=== PATIENT | male | born 1965 | race African-American/Black ===

== ENCOUNTER 2018-02-16 16:33 | Inpatient (IN) | payer OTHER ==
[2018-02-16] MEDS ORDERED: FUROSEMIDE 40 MG/4 ML INJECTABLE VIAL IVPUSH ONE (16:53)
[2018-02-16 17:13] LABS: BASO % 1.1 % (0-2.0); EOS % 4.7 % (0-4.5); HEMATOCRIT 29.3 % (35.4-49); HEMOGLOBIN 9.7 GM/dL (11.7-16.9); LYMPH % 13.4 % (8-40); MCH 28.1 pg (25.7-33.7); MEAN CELL VOLUME 84.9 fl (80-96); MEAN PLT VOLUME 8.9 fl (7.5-11.1); MONO % 17.1 % (3.8-10.2); NEUT % 63.7 % (42.8-82.8); PLATELET COUNT 264 K/MM3 (134-434); RBC 3.45 M/mm3 (4.00-5.60); RDW 15.5 % (11.9-15.9); WHITE BLOOD COUNT 6.8 K/mm3 (4.0-10.0)
--- NOTE | 2018-02-16 17:17 | PDOC ---
History of Present Illness - General History Source: Patient Exam Limitations: No Limitations - History of Present Illness Initial Comments: 02/16/18 18:54 The patient is a 53 year old male with history of hypertension, hyperlipidemia, alcohol dependence, sent from [facility] for hypertension. Patient recently completed 1 week alcohol detox. He was noted to have systolic hypertension to 218 today. He was given Clonidine and Hctz prior to ED arrival. On evaluation, the patient denies headache, blurred vision, numbness or tingling. He denies chest pain or shortness of breath. He denies any other physical complaint. <Lizz Simmons - Last Filed: 02/16/18 19:31> <Mariah Ulloa - Last Filed: 02/16/18 22:16> - General Chief Complaint: Blood Pressure Problem Stated Complaint: HIGH BP Time Seen by Provider: 02/16/18 16:46 Past History <Lizz Simmons - Last Filed: 02/16/18 19:31> - Past Medical History COPD: No HTN: Yes Hypercholesterolemia: Yes Liver Disease: Yes Other medical history: cocaine abuse - Suicide/Smoking/Psychosocial Hx Smoking History: Never smoked Have you smoked in the past 12 months: No Information on smoking cessation initiated: No Hx Alcohol Use: No Drug/Substance Use Hx: No Substance Use Type: Alcohol, Cocaine <Mariah Ulloa - Last Filed: 02/16/18 22:16> - Past Medical History Allergies/Adverse Reactions: Allergies Allergy/AdvReac Type Severity Reaction Status Date / Time No Known Allergies Allergy Verified 02/16/18 16:50 Home Medications: Ambulatory Orders Clonidine HCl 0.1 mg PO TID 02/16/18 Hydrochlorothiazide [Hctz -] 25 mg PO DAILY 02/16/18 Hydroxyzine HCl 50 mg PO Q6H 02/16/18 Ibuprofen 600 mg PO Q6H PRN 02/16/18 Ranitidine [Zantac -] 150 mg PO BID 02/16/18 Trazodone HCl 50 mg PO HS 02/16/18 Review of Systems - Review of Systems Able to Perform ROS?: Yes Comments:: 02/16/18 19:05 GENERAL/CONSTITUTIONAL: No fever or chills. No weakness. HEAD, EYES, EARS, NOSE AND THROAT: No change in vision. No ear pain or discharge. No sore throat. CARDIOVASCULAR: No chest pain or shortness of breath. RESPIRATORY: No cough, wheezing, or hemoptysis. GASTROINTESTINAL: No nausea, vomiting, diarrhea or constipation. GENITOURINARY: No dysuria, frequency, or change in urination. MUSCULOSKELETAL: No joint or muscle swelling or pain. No neck or back pain. SKIN: No rash NEUROLOGIC: No headache, vertigo, loss of consciousness, or change in strength/ sensation. ENDOCRINE: No increased thirst. No abnormal weight change. HEMATOLOGIC/LYMPHATIC: No anemia, easy bleeding, or history of blood clots. ALLERGIC/IMMUNOLOGIC: No hives or skin allergy. <Lizz Simmons - Last Filed: 02/16/18 19:31> *Physical Exam - Vital Signs Last Vital Signs Temp Pulse Resp BP Pulse Ox 97.8 F 88 20 188/109 100 02/16/18 16:33 02/16/18 17:10 02/16/18 17:10 02/16/18 17:10 02/16/18 17:10 - Physical Exam Comments: 02/16/18 19:08 GENERAL: Awake, alert, and fully oriented, in no acute distress. Obese. HEAD: No signs of trauma EYES: PERRLA, EOMI, sclera anicteric, conjunctiva clear ENT: Auricles normal inspection, nares patent. Moist mucosa NECK: Normal ROM, supple, no JVD, or masses LUNGS: Breath sounds equal, clear to auscultation bilaterally. No wheezes, and no crackles HEART: Regular rate and rhythm, normal S1 and S2, no murmurs, rubs or gallops ABDOMEN: Soft, nontender, normoactive bowel sounds. No guarding, no rebound. No masses EXTREMITIES: +3 bilateral lower extremity pitting edema. Normal range of motion. No clubbing or cyanosis. No cords, erythema, or tenderness NEUROLOGICAL: Alert and oriented x 3. Moves all extremities. Face is symmetric. SKIN: Warm, Dry, normal turgor, no rashes or lesions noted. <Lizz Simmons - Last Filed: 02/16/18 19:31> - Vital Signs Last Vital Signs Temp Pulse Resp BP Pulse Ox 97.8 F 96 H 16 199/130 100 02/16/18 16:33 02/16/18 16:33 02/16/18 16:33 02/16/18 16:33 02/16/18 16:33 <Mariah Ulloa - Last Filed: 02/16/18 22:16> Heart Score/ECG Review #1 02/16/18 19:32 EKG obtained 16:51. Normal sinus rhythm at 96 bpm. Possible left atrial enlargement. Left ventricular hypertrophy with repolarization abnormality. Prolonged QT. Abnormal EKG. <Lizz Simmons - Last Filed: 02/16/18 19:31> - History History: Slightly suspicious - Electrocardiogram EKG: Non specific repolarization disturbance - Age Age: 45-65 - Risk Factors Risk Factors Heart Score: Yes Hx Hypercholesterolemia, Yes Hx Hypertension, Yes Hx Obesity Based on the list above the patient has:: >/=3 risk factors or Hx atherosclerotic disease - Troponin Troponin: 1-3x normal limit - Score Heart Score - Total: 5 - ECG Intrepretation Rhythm: Regular Rhythm - P and VA Delta Wave(s) Present: No WPW: No - ST and T Non Specific ST-T Wave changes: Yes Prolonged Q-T Interval: Yes - ECG Impressions Torsades jigar Pointes: No WPW: No <Mariah Ulloa - Last Filed: 02/16/18 22:16> ED Treatment Course - LABORATORY CBC & Chemistry Diagram: 02/16/18 17:00 02/16/18 17:00 - ADDITIONAL ORDERS Additional order review: Laboratory Results 02/16/18 02/16/18 17:00 17:00 PT with INR 11.50 INR 1.02 Sodium 145 Potassium 3.9 Chloride 114 H Carbon Dioxide 24 Anion Gap 7 L BUN 85 H Creatinine 6.7 H Creat Clearance w eGFR 8.67 Random Glucose 86 Calcium 8.0 L Magnesium 2.2 Total Bilirubin < 0.1 L AST 13 L ALT 15 Alkaline Phosphatase 82 Creatine Kinase 118 Troponin I 0.33 H B-Natriuretic Peptide 3731.97 H Total Protein 6.3 L Albumin 3.2 L Triglycerides 33 L Cholesterol 162 Total LDL Cholesterol 106 H HDL Cholesterol 53 02/16/18 17:00 RBC 3.45 L MCV 84.9 MCHC 33.0 RDW 15.5 MPV 8.9 Neutrophils % 63.7 Lymphocytes % 13.4 Monocytes % 17.1 H Eosinophils % 4.7 H Basophils % 1.1 - Medications Given in the ED: ED Medications Discontinued Medications Generic Name Dose Route Start Last Admin Trade Name Geronimo PRN Reason Stop Dose Admin Furosemide 40 mg 02/16/18 16:53 02/16/18 17:15 Lasix Injection - IVPUSH 02/16/18 16:54 40 mg ONCE ONE Administration <Lizz Simmons - Last Filed: 02/16/18 19:31> - LABORATORY CBC & Chemistry Diagram: 02/16/18 17:00 02/16/18 17:00 <Mariah Ulloa - Last Filed: 02/16/18 22:16> Medical Decision Making - Medical Decision Making 02/16/18 19:46 53-year-old male brought in by ambulance from alcohol detox facility in the [place]. The patient was hypertensive at the facility and given clonidine. Paramedics report a systolic blood pressure of 218 prior to his medication. -Patient is not short of breath and he does not have chest pain. Past medical history significant for chronic kidney disease, no dialysis, poorly controlled high blood pressure and lower extremity edema. This is his first visit to [facility] prior to this he went to [facility] Exam shows an obese 53-year-old male in no acute distress with 3+ lower extremity pitting edema, clear lungs, CVS, regular rate and rhythm. EKG is normal sinus rhythm at 96 bpm, LVH with repol abnormality and a prolonged QT. There are no prior EKGs for comparison. Social history patient has a long-standing history of alcohol abuse and just completed 1 week of alcohol detox. Labs reviewed, and a creatinine is above 8, his electrolytes are unremarkable, troponin is 0.33 and will be trended I SPOKE w Dr Vides and the patient will be admitted to telemetry and his troponin will be trended ,elevated BP will be treated and diuretics given for LE edema 02/16/18 22:14 <Mariah Ulloa - Last Filed: 02/16/18 22:16> *DC/Admit/Observation/Transfer - Attestations Scribe Attestion: 02/16/18 19:08 Documentation prepared by Lizz Simmons, acting as electromedical equipment technician for Mariah Ulloa MD. <Lizz Simmons - Last Filed: 02/16/18 19:31> - Discharge Dispostion Admit: Yes <Mariah Ulloa - Last Filed: 02/16/18 22:16> Diagnosis at time of Disposition: Edema extremities, Elevated troponin I measurement, Poorly controlled blood pressure Hypertensive CKD (chronic kidney disease) Qualifiers: Chronic kidney disease stage: unspecified stage Qualified Code(s): I12.9 - Hypertensive chronic kidney disease with stage 1 through stage 4 chronic kidney disease, or unspecified chronic kidney disease
[2018-02-16 17:27] LABS: INR 1.02 (0.82-1.09); PROTHROMBIN TIME (PATIENT) 11.5 SEC (9.98-11.88)
[2018-02-16 17:43] LABS: ALBUMIN 3.2 g/dl (3.4-5.0); ANION GAP 7 (8-16); BLOOD UREA NITROGEN 85 mg/dL (7-18); CHLORIDE 114 mmol/L (98-107); CHOLESTEROL 162 mg/dL (50-200); CO2 24 mmol/L (21-32); CREATININE 6.7 mg/dL (0.7-1.3); GLUCOSE,RANDOM 86 mg/dL (74-106); LDL CHOLESTEROL (ONLY SJRH) 106 mg/dL (5-100); MAGNESIUM 2.2 mg/dL (1.8-2.4); POTASSIUM 3.9 mmol/L (3.5-5.1); SGOT/AST 13 U/L (15-37); SGPT/ALT 15 U/L (12-78); SODIUM 145 mmol/L (136-145); TRIGLYCERIDES 33 mg/dL (35-160)
[2018-02-16 17:44] LABS: ALK PHOS 82 U/L (45-117); HDL CHOLESTEROL 53 mg/dL (40-60); N-TERMINAL BNP 3731.97 pg/ml (5-125); TOT PROT 6.3 g/dl (6.4-8.2)
[2018-02-16 17:59] LABS: BILIRUBIN,TOTAL < 0.1 mg/dL (0.2-1.0)
[2018-02-16] MEDS ORDERED: cloNIDine HCL 0.1 MG TABLET PO ONE (19:30)
[2018-02-16] MEDS ORDERED: HYDROCHLOROTHIAZIDE 25 MG TABLET (FP) PO ONE (19:31)
[2018-02-16] MEDS ORDERED: HYDROCHLOROTHIAZIDE 25 MG TABLET (FP) ONE (19:38)
[2018-02-16] MEDS ORDERED: cloNIDine HCL 0.1 MG TABLET ONE ×2 (19:38→22:53)
[2018-02-16] MEDS ORDERED: ASPIRIN 81 MG CHEWABLE TABLETS PO ONE (19:44)
[2018-02-16] MEDS ORDERED: ASPIRIN 325 MG TABLET ONE (19:49)
[2018-02-16] MEDS ORDERED: LABETALOL HCL 200 MG TABLET (FP) PO ONE (20:46)
[2018-02-16] MEDS ORDERED: LABETALOL HCL 100 MG TABLET (FP) ONE (20:54)
[2018-02-16] MEDS ORDERED: ACETAMINOPHEN 325 MG TABLET (FP) PO PRN (21:52)
--- NOTE | 2018-02-16 22:08 | HP ---
Admitting History and Physical - Primary Care Physician PCP: Natalya Stewart - Admission History of Present Illness: -53 year old male with history of hypertension, hyperlipidemia, alcohol dependence, sent from [facility]. Patient recently completed 1 week alcohol detox. He was noted to have systolic hypertension to 218 today. He was given Clonidine and Hctz prior to ED arrival. On evaluation, the patient denies headache, blurred vision, numbness or tingling. He denies chest pain or shortness of breath. - - Past Medical History Cardiovascular: Yes: HTN, Hyperlipdemia Renal/: Yes: Other (ckd) - Smoking History Smoking history: Never smoked Have you smoked in the past 12 months: No - Alcohol/Substance Use Hx Alcohol Use: No Home Medications - Allergies Allergies/Adverse Reactions: Allergies Allergy/AdvReac Type Severity Reaction Status Date / Time No Known Allergies Allergy Verified 02/16/18 16:50 - Home Medications Home Medications: Ambulatory Orders Clonidine HCl 0.1 mg PO TID 02/16/18 Hydrochlorothiazide [Hctz -] 25 mg PO DAILY 02/16/18 Hydroxyzine HCl 50 mg PO Q6H 02/16/18 Ibuprofen 600 mg PO Q6H PRN 02/16/18 Ranitidine [Zantac -] 150 mg PO BID 02/16/18 Trazodone HCl 50 mg PO HS 02/16/18 Physical Examination Vital Signs: Vital Signs Temperature 97.8 F 02/16/18 16:33 Pulse Rate 93 H 02/16/18 20:27 Respiratory Rate 19 02/16/18 20:27 Blood Pressure 188/113 02/16/18 20:27 O2 Sat by Pulse Oximetry (%) 100 02/16/18 19:07 Constitutional: Yes: No Distress HENT: Yes: Atraumatic Neck: Yes: Supple Cardiovascular: Yes: Regular Rate and Rhythm Respiratory: Yes: CTA Bilaterally, Rales, Rhonchi Gastrointestinal: Yes: Normal Bowel Sounds Extremities: Yes: WNL Edema: Yes Edema: LLE: 2+, RLE: 2+ Labs: CBC, BMP 02/16/18 17:00 02/16/18 17:00 Problem List - Problems (1) Edema extremities Assessment/Plan: on lasix and hctz improving Code(s): R60.0 - LOCALIZED EDEMA (2) Elevated troponin I measurement Assessment/Plan: trending down Code(s): R74.8 - ABNORMAL LEVELS OF OTHER SERUM ENZYMES (3) Hypertensive CKD (chronic kidney disease) Assessment/Plan: probably due to uncontrolled htn cr improving Code(s): I12.9 - HYPERTENSIVE CHRONIC KIDNEY DISEASE W STG 1-4/UNSP CHR KDNY Qualifiers: Chronic kidney disease stage: unspecified stage Qualified Code(s): I12.9 - Hypertensive chronic kidney disease with stage 1 through stage 4 chronic kidney disease, or unspecified chronic kidney disease (4) Poorly controlled blood pressure Assessment/Plan: on meds improving Code(s): I99.8 - OTHER DISORDER OF CIRCULATORY SYSTEM Assessment/Plan Laboratory Tests 02/16/18 02/16/18 02/16/18 17:00 17:00 17:00 WBC 6.8 RBC 3.45 L Hgb 9.7 L Hct 29.3 L MCV 84.9 MCH 28.1 MCHC 33.0 RDW 15.5 Plt Count 264 MPV 8.9 Neutrophils % 63.7 Lymphocytes % 13.4 Monocytes % 17.1 H Eosinophils % 4.7 H Basophils % 1.1 PT with INR 11.50 INR 1.02 Sodium 145 Potassium 3.9 Chloride 114 H Carbon Dioxide 24 Anion Gap 7 L BUN 85 H Creatinine 6.7 H Creat Clearance w eGFR 8.67 Random Glucose 86 Calcium 8.0 L Magnesium 2.2 Total Bilirubin < 0.1 L AST 13 L ALT 15 Alkaline Phosphatase 82 Creatine Kinase 118 Troponin I 0.33 H B-Natriuretic Peptide 3731.97 H Total Protein 6.3 L Albumin 3.2 L Triglycerides 33 L Cholesterol 162 Total LDL Cholesterol 106 H HDL Cholesterol 53 Active Medications Generic Name Dose Route Start Last Admin Trade Name Freq PRN Reason Stop Dose Admin Acetaminophen 650 mg 02/16/18 21:52 Tylenol - PO Q6H PRN FEVER Clonidine 0.1 mg 02/16/18 22:00 Catapres - PO TID ANISH Heparin Sodium (Porcine) 5,000 unit 02/16/18 22:00 Heparin - SQ BID ANISH Hydrochlorothiazide 25 mg 02/17/18 10:00 Hctz - PO DAILY ANISH Ranitidine HCl 150 mg 02/16/18 22:00 Zantac - PO BID ANISH Trazodone HCl 50 mg 02/16/18 22:00 Desyrel - PO HS ANISH
[2018-02-16] MEDS ORDERED: amLODIPine BESYLATE 10 MG TABLET (FP) PO ONE (22:09)
[2018-02-16] MEDS ORDERED: traMADol HCL 50 MG TABLET ONE (22:52)
[2018-02-16] MEDS ORDERED: amLODIPine BESYLATE 5 MG TABLET (FP) ONE (22:53)
[2018-02-16] MEDS ORDERED: RANITIDINE HCL 150 MG TABLET (FP) ONE (22:53)
[2018-02-16] MEDS ORDERED: HEPARIN NA (PORCINE) 5,000 UNITS/ML 1ML VIAL ONE (22:53)
[2018-02-16] MEDS: cloNIDine HCL 0.1 MG TABLET PO SCH (23:05)
[2018-02-16] MEDS: RANITIDINE HCL 150 MG TABLET (FP) PO SCH (23:06)
[2018-02-16] MEDS: traZODone HCL 50 MG TABLET (FP) PO SCH (23:06)
[2018-02-16] MEDS: HEPARIN NA (PORCINE) 5,000 UNITS/ML 1ML VIAL SQ SCH (23:06)
[2018-02-17 03:12] VITALS: BMI 39.7
[2018-02-17] MEDS: cloNIDine HCL 0.1 MG TABLET PO SCH ×3 (06:09→21:25)
[2018-02-17 06:45] LABS: BASO % 0.7 % (0-2.0); EOS % 4.7 % (0-4.5); HEMATOCRIT 28.2 % (35.4-49); HEMOGLOBIN 9.4 GM/dL (11.7-16.9); LYMPH % 14.9 % (8-40); MCH 28.6 pg (25.7-33.7); MCHC 33.5 g/dl (32.0-35.9); MEAN CELL VOLUME 85.4 fl (80-96); MEAN PLT VOLUME 9.5 fl (7.5-11.1); MONO % 19.2 % (3.8-10.2); NEUT % 60.5 % (42.8-82.8); PLATELET COUNT 257 K/MM3 (134-434); RDW 15.1 % (11.9-15.9); WHITE BLOOD COUNT 6.7 K/mm3 (4.0-10.0)
[2018-02-17 07:28] LABS: ALBUMIN 3.2 g/dl (3.4-5.0); ANION GAP 10 (8-16); BLOOD UREA NITROGEN 85 mg/dL (7-18); CALCIUM 7.9 mg/dL (8.5-10.1); CHLORIDE 110 mmol/L (98-107); CO2 25 mmol/L (21-32); GLUCOSE,RANDOM 87 mg/dL (74-106); POTASSIUM 3.8 mmol/L (3.5-5.1); SGOT/AST 13 U/L (15-37); SGPT/ALT 15 U/L (12-78); SODIUM 145 mmol/L (136-145)
[2018-02-17 07:30] LABS: ALK PHOS 77 U/L (45-117); BILIRUBIN,TOTAL 0.2 mg/dL (0.2-1.0); CREATININE 6.6 mg/dL (0.7-1.3); TOT PROT 5.9 g/dl (6.4-8.2)
--- NOTE | 2018-02-17 10:10 | EKG ---
Test Reason : Blood Pressure : / mmHG Vent. Rate : 096 BPM Atrial Rate : 096 BPM P-R Int : 120 ms QRS Dur : 106 ms QT Int : 392 ms P-R-T Axes : 044 005 175 degrees QTc Int : 495 ms NORMAL SINUS RHYTHM POSSIBLE LEFT ATRIAL ENLARGEMENT LEFT VENTRICULAR HYPERTROPHY WITH REPOLARIZATION ABNORMALITY PROLONGED QT ABNORMAL ECG NO PREVIOUS ECGS AVAILABLE Confirmed by Malik Higigns MD ([id number]) on 02/17/2018 10:10:21 AM Referred By: Confirmed By:Malik Higgins MD
[2018-02-17] MEDS: FUROSEMIDE 40 MG/4 ML INJECTABLE VIAL IVPUSH SCH (10:42)
[2018-02-17] MEDS: HYDROCHLOROTHIAZIDE 25 MG TABLET (FP) PO SCH (10:42)
[2018-02-17] MEDS: RANITIDINE HCL 150 MG TABLET (FP) PO SCH ×2 (10:42→21:25)
[2018-02-17] MEDS: amLODIPine BESYLATE 10 MG TABLET (FP) PO SCH (10:42)
[2018-02-17] MEDS: HEPARIN NA (PORCINE) 5,000 UNITS/ML 1ML VIAL SQ SCH ×2 (10:42→21:25)
--- NOTE | 2018-02-17 15:36 | CONSULT ---
Consult Consult Specialty:: Nephrology Reason for Consultation:: SHAR - History of Present Illness Chief Complaint: sent in for elevated blood pressure History of Present Illness: Pt is a 53 year old make with pmhx of etoh abuse, cocaine use, CKD, HLD and HTN who was sent in from rehab for elevated blood pressure. He is awake and alert. He denies shortness of breath or chest pain. He was found to have elevated creatinine and i was called to see him. I did see him in the past in an outise facility however he did not follow up. Pt is awake that he has history of CKD. [place]. He has not done cocaine in about 11 days. He has however been taking daily nsaids for the last week. He does complains of lower ext edema. - History Source History Provided By: Patient - Past Medical History Cardio/Vascular: Yes: HTN, Hyperlipdemia Gastrointestinal: Yes: GERD Renal/: Yes: Renal Inusuff, Other (ckd) - Alcohol/Substance Use Hx Alcohol Use: Yes - Smoking History Smoking history: Never smoked Have you smoked in the past 12 months: No Home Medications - Allergies Allergies/Adverse Reactions: Allergies Allergy/AdvReac Type Severity Reaction Status Date / Time No Known Allergies Allergy Verified 02/16/18 16:50 - Home Medications Home Medications: Ambulatory Orders Clonidine HCl 0.1 mg PO TID 02/16/18 Hydrochlorothiazide [Hctz -] 25 mg PO DAILY 02/16/18 Hydroxyzine HCl 50 mg PO Q6H 02/16/18 Ibuprofen 600 mg PO Q6H PRN 02/16/18 Ranitidine [Zantac -] 150 mg PO BID 02/16/18 Trazodone HCl 50 mg PO HS 02/16/18 Family Disease History - Family Disease History Family History: Denies Review of Systems - Review of Systems Constitutional: reports: No Symptoms Eyes: reports: No Symptoms HENT: reports: No Symptoms Neck: reports: No Symptoms Cardiovascular: reports: No Symptoms Respiratory: reports: No Symptoms Gastrointestinal: reports: No Symptoms Genitourinary: reports: No Symptoms Musculoskeletal: reports: No Symptoms Integumentary: reports: No Symptoms Neurological: reports: No Symptoms Endocrine: reports: No Symptoms Hematology/Lymphatic: reports: No Symptoms Psychiatric: reports: No Symptoms Physical Exam Vital Signs: Vital Signs Temperature 98 F 02/17/18 05:38 Pulse Rate 86 02/17/18 05:38 Respiratory Rate 20 02/17/18 05:38 Blood Pressure 162/93 02/17/18 05:38 O2 Sat by Pulse Oximetry (%) 95 02/17/18 02:56 Constitutional: Yes: Calm Eyes: Yes: Conjunctiva Clear HENT: Yes: Atraumatic Neck: Yes: Supple Cardiovascular: Yes: S1, S2 Respiratory: Yes: CTA Bilaterally Gastrointestinal: Yes: Soft, Abdomen, Obese Renal/: Yes: WNL Musculoskeletal: Yes: WNL Edema: Yes Edema: LLE: 2+, RLE: 2+ Neurological: Yes: Oriented Psychiatric: Yes: Oriented Labs: CBC, BMP 02/17/18 06:25 02/17/18 06:25 Laboratory Tests 02/16/18 02/16/18 02/16/18 17:00 17:00 17:00 WBC 6.8 Hgb 9.7 L Plt Count 264 INR 1.02 Sodium 145 Potassium 3.9 Chloride 114 H Carbon Dioxide 24 Anion Gap 7 L BUN 85 H Creatinine 6.7 H 02/17/18 02/17/18 06:25 06:25 WBC 6.7 Hgb 9.4 L Plt Count 257 INR Sodium 145 Potassium 3.8 Chloride 110 H Carbon Dioxide 25 Anion Gap 10 BUN 85 H Creatinine 6.6 H Imaging - Results Chest X-ray: Report Reviewed Problem List - Problems (1) HTN (hypertension) Code(s): I10 - ESSENTIAL (PRIMARY) HYPERTENSION (2) CKD (chronic kidney disease) Code(s): N18.9 - CHRONIC KIDNEY DISEASE, UNSPECIFIED (3) Edema extremities Code(s): R60.0 - LOCALIZED EDEMA (4) Elevated troponin I measurement Code(s): R74.8 - ABNORMAL LEVELS OF OTHER SERUM ENZYMES (5) Poorly controlled blood pressure Code(s): I99.8 - OTHER DISORDER OF CIRCULATORY SYSTEM Assessment/Plan Current Medications Generic Name Dose Route Start Last Admin Trade Name Freq PRN Reason Stop Dose Admin Acetaminophen 650 mg 02/16/18 21:52 Tylenol - PO Q6H PRN FEVER Amlodipine Besylate 10 mg 02/17/18 10:00 02/17/18 10:42 Norvasc - PO 10 mg DAILY ANISH Administration Clonidine 0.1 mg 02/16/18 22:00 02/17/18 06:09 Catapres - PO 0.1 mg TID ANISH Administration Furosemide 40 mg 02/17/18 10:00 02/17/18 10:42 Lasix Injection - IVPUSH 40 mg DAILY ANISH Administration Heparin Sodium (Porcine) 5,000 unit 02/16/18 22:00 02/17/18 10:42 Heparin - SQ 5,000 unit BID ANISH Administration Hydrochlorothiazide 25 mg 02/17/18 10:00 02/17/18 10:42 Hctz - PO 25 mg DAILY ANISH Administration Ranitidine HCl 150 mg 02/16/18 22:00 02/17/18 10:42 Zantac - PO 150 mg BID ANISH Administration Trazodone HCl 50 mg 02/16/18 22:00 02/16/18 23:06 Desyrel - PO 50 mg HS ANISH Administration Impression 1. HTN poorly controlled 2. CKD 3. SHAR 4. cocain use 5. etoh abuse 6. HLD 7. GERD 8. nsaid use Plan - check renal ultrasound - check ua, electrolytes and supervisor maintenance - will send renal workup - bp is improving, will decrease it gradually - cont detox - SHAR on CKD likely multifactorial in a pt with hx ckd, uncontrolled htn, nsaid use and cocaine use - will follow Dr Champagne
--- NOTE | 2018-02-17 16:44 | CON.CARD ---
Consult Consult Specialty:: cardiology Reason for Consultation:: uncontrolled HTN - History of Present Illness Chief Complaint: Pt A&Ox3; no chest pain or dyspnea presently. History of Present Illness: The patient is a 53 year old black male with history of hypertension, hyperlipidemia, alcohol dependence, sent from [facility] for hypertension. Patient recently completed 1 week alcohol detox. He was noted to have systolic hypertension to 218 today. He was given Clonidine and Hctz prior to ED arrival. On evaluation, the patient denies headache, blurred vision, numbness or tingling. He denies chest pain or shortness of breath. He denies any other physical complaint. <Lizz Simmons - Last Filed: 02/16/18 19:31> - History Source History Provided By: Patient, Medical Record Limitations to Obtaining History: No Limitations - Past Medical History Cardio/Vascular: Yes: HTN, Hyperlipdemia Gastrointestinal: Yes: GERD Renal/: Yes: Renal Inusuff, Other (ckd) Heme/Onc: Yes: Anemia Psych: Yes: Other (alcoholism) - Alcohol/Substance Use Hx Alcohol Use: Yes - Smoking History Smoking history: Never smoked Have you smoked in the past 12 months: No - Social History Usual Living Arrangement: Alone Home Medications - Allergies Allergies/Adverse Reactions: Allergies Allergy/AdvReac Type Severity Reaction Status Date / Time No Known Allergies Allergy Verified 02/16/18 16:50 - Home Medications Home Medications: Ambulatory Orders Clonidine HCl 0.1 mg PO TID 02/16/18 Hydrochlorothiazide [Hctz -] 25 mg PO DAILY 02/16/18 Hydroxyzine HCl 50 mg PO Q6H 02/16/18 Ibuprofen 600 mg PO Q6H PRN 02/16/18 Ranitidine [Zantac -] 150 mg PO BID 02/16/18 Trazodone HCl 50 mg PO HS 02/16/18 Vital Signs: Vital Signs Temperature 98.2 F 02/17/18 15:00 Pulse Rate 82 02/17/18 15:00 Respiratory Rate 20 02/17/18 15:00 Blood Pressure 159/96 02/17/18 15:00 O2 Sat by Pulse Oximetry (%) 95 02/17/18 02:56 - Other Data Labs, Other Data: CBC, BMP 02/17/18 06:25 02/17/18 06:25 INR, PTT INR 1.02 (0.82-1.09) 02/16/18 17:00 Troponin, BNP 02/16/18 02/16/18 02/17/18 17:00 22:59 06:25 Troponin I 0.33 H 0.34 H 0.29 H B-Natriuretic Peptide 3731.97 H 02/17/18 06:25 Troponin I Cancelled B-Natriuretic Peptide Troponin, BNP 02/16/18 02/16/18 02/17/18 17:00 22:59 06:25 Troponin I 0.33 H 0.34 H 0.29 H B-Natriuretic Peptide 3731.97 H 02/17/18 06:25 Troponin I Cancelled B-Natriuretic Peptide Problem List - Problems (1) Renal dysfunction Code(s): N28.9 - DISORDER OF KIDNEY AND URETER, UNSPECIFIED (2) Edema extremities Code(s): R60.0 - LOCALIZED EDEMA (3) Elevated troponin I measurement Assessment/Plan: likiely 2ndary to renal failure, uncontrolled HTN, CHF. Multiple CAD risks; sedentary. Will require coronary artery evaluation (followed by Dr. Coley at [facility] ; this may be done as outatient. Code(s): R74.8 - ABNORMAL LEVELS OF OTHER SERUM ENZYMES (4) Poorly controlled blood pressure Assessment/Plan: Continue present medications (per air motor repairer)). Recent abuse of cocaine will be a factor in choosing medications. Code(s): I99.8 - OTHER DISORDER OF CIRCULATORY SYSTEM (5) Hypertensive CKD (chronic kidney disease) Code(s): I12.9 - HYPERTENSIVE CHRONIC KIDNEY DISEASE W STG 1-4/UNSP CHR KDNY Qualifiers: Chronic kidney disease stage: unspecified stage Qualified Code(s): I12.9 - Hypertensive chronic kidney disease with stage 1 through stage 4 chronic kidney disease, or unspecified chronic kidney disease (6) [place] cardiac risk >20% in next 10 years Code(s): Z91.89 - OTH PERSONAL RISK FACTORS, NOT ELSEWHERE CLASSIFIED (7) Has smoked cigarettes within prior year Assessment/Plan: "stopped" 3 weeks ago. Code(s): Z87.891 - PERSONAL HISTORY OF NICOTINE DEPENDENCE (8) Cocaine abuse Assessment/Plan: last abused about 3 weeks ago. Code(s): F14.10 - COCAINE ABUSE, UNCOMPLICATED (9) Sleep apnea Assessment/Plan: noncompliant to CPAP mask. Code(s): G47.30 - SLEEP APNEA, UNSPECIFIED (10) Obesity Code(s): E66.9 - OBESITY, UNSPECIFIED
--- NOTE | 2018-02-17 17:13 | PN ---
Progress Note, Physician History of Present Illness: doing well - Current Medication List Current Medications: Active Medications Acetaminophen (Tylenol -) 650 mg PO Q6H PRN PRN Reason: FEVER Amlodipine Besylate (Norvasc -) 10 mg PO DAILY [facility] Last Admin: 02/17/18 10:42 Dose: 10 mg Clonidine (Catapres -) 0.1 mg PO TID [facility] Last Admin: 02/17/18 06:09 Dose: 0.1 mg Furosemide (Lasix Injection -) 40 mg IVPUSH DAILY [facility] Last Admin: 02/17/18 10:42 Dose: 40 mg Heparin Sodium (Porcine) (Heparin -) 5,000 unit SQ BID [facility] Last Admin: 02/17/18 10:42 Dose: 5,000 unit Hydrochlorothiazide (Hctz -) 25 mg PO DAILY [facility] Last Admin: 02/17/18 10:42 Dose: 25 mg Ranitidine HCl (Zantac -) 150 mg PO BID [facility] Last Admin: 02/17/18 10:42 Dose: 150 mg Trazodone HCl (Desyrel -) 50 mg PO HS [facility] Last Admin: 02/16/18 23:06 Dose: 50 mg - Objective Vital Signs: Vital Signs Temperature 98.2 F 02/17/18 15:00 Pulse Rate 82 02/17/18 15:00 Respiratory Rate 20 02/17/18 15:00 Blood Pressure 159/96 02/17/18 15:00 O2 Sat by Pulse Oximetry (%) 95 02/17/18 02:56 Constitutional: Yes: No Distress HENT: Yes: Atraumatic Neck: Yes: Supple Cardiovascular: Yes: Regular Rate and Rhythm Respiratory: Yes: CTA Bilaterally Gastrointestinal: Yes: Normal Bowel Sounds Extremities: Yes: WNL Edema: LLE: 1+, RLE: 1+ Neurological: Yes: Alert, Oriented Labs: CBC, BMP 02/17/18 06:25 02/17/18 06:25 INR, PTT INR 1.02 (0.82-1.09) 02/16/18 17:00 Problem List - Problems (1) Edema extremities Assessment/Plan: on lasix and hctz improving Code(s): R60.0 - LOCALIZED EDEMA (2) Elevated troponin I measurement Assessment/Plan: trending down Code(s): R74.8 - ABNORMAL LEVELS OF OTHER SERUM ENZYMES (3) Hypertensive CKD (chronic kidney disease) Assessment/Plan: probably due to uncontrolled htn Code(s): I12.9 - HYPERTENSIVE CHRONIC KIDNEY DISEASE W STG 1-4/UNSP CHR KDNY Qualifiers: Chronic kidney disease stage: unspecified stage Qualified Code(s): I12.9 - Hypertensive chronic kidney disease with stage 1 through stage 4 chronic kidney disease, or unspecified chronic kidney disease (4) Poorly controlled blood pressure Assessment/Plan: on meds improving Code(s): I99.8 - OTHER DISORDER OF CIRCULATORY SYSTEM
[2018-02-17] MEDS: traZODone HCL 50 MG TABLET (FP) PO SCH (21:25)
[2018-02-17] MEDS: ATORVASTATIN CA 10 MG TABLET (FP) PO SCH (21:25)
[2018-02-17 22:56] LABS: URINE APPEARANCE CLEAR; URINE BILIRUBIN NEGATIVE (<2.0 mg/dL); URINE BLOOD 1+ (NEGATIVE); URINE COLOR COLORLESS; URINE GLUCOSE (UA) 1+ (NEGATIVE); URINE KETONE NEGATIVE (NEGATIVE); URINE LEUK ESTERASE NEGATIVE (NEGATIVE); URINE NITRITE NEGATIVE (NEGATIVE); URINE PROTEIN NEGATIVE (NEGATIVE); URINE UROBILINOGEN NEGATIVE mg/dL (0.2-1.0)
[2018-02-18 00:01] LABS: URINE CREATININE 41.4 mg/dL (20-370)
[2018-02-18 00:34] LABS: EPI CELLS RARE /HPF (FEW); URINE BACTERIA FEW /hpf (NONE SEEN)
[2018-02-18] MEDS: cloNIDine HCL 0.1 MG TABLET PO SCH ×3 (05:51→21:42)
[2018-02-18 07:55] LABS: CHLORIDE 107 mmol/L (98-107); POTASSIUM 3.4 mmol/L (3.5-5.1); SODIUM 145 mmol/L (136-145)
[2018-02-18 08:03] LABS: ALBUMIN 3.3 g/dl (3.4-5.0); ALK PHOS 85 U/L (45-117); ANION GAP 12 (8-16); BILIRUBIN,TOTAL 0.3 mg/dL (0.2-1.0); BLOOD UREA NITROGEN 80 mg/dL (7-18); CO2 26 mmol/L (21-32); CREATININE 6.2 mg/dL (0.7-1.3); GLUCOSE,RANDOM 93 mg/dL (74-106); SGOT/AST 13 U/L (15-37); SGPT/ALT 16 U/L (12-78); TOT PROT 6.3 g/dl (6.4-8.2)
[2018-02-18] MEDS ORDERED: PT OWN MED DRAWER 7, Y5N ONE (08:30)
[2018-02-18] MEDS: amLODIPine BESYLATE 10 MG TABLET (FP) PO SCH (10:35)
[2018-02-18] MEDS: HEPARIN NA (PORCINE) 5,000 UNITS/ML 1ML VIAL SQ SCH ×2 (10:35→21:42)
[2018-02-18] MEDS: FUROSEMIDE 40 MG/4 ML INJECTABLE VIAL IVPUSH SCH (10:35)
[2018-02-18] MEDS: HYDROCHLOROTHIAZIDE 25 MG TABLET (FP) PO SCH (10:35)
[2018-02-18] MEDS: RANITIDINE HCL 150 MG TABLET (FP) PO SCH ×2 (10:35→21:42)
--- NOTE | 2018-02-18 11:27 | PN ---
Progress Note, Physician - Current Medication List Current Medications: Active Medications Acetaminophen (Tylenol -) 650 mg PO Q6H PRN PRN Reason: FEVER Amlodipine Besylate (Norvasc -) 10 mg PO DAILY [facility] Last Admin: 02/18/18 10:35 Dose: 10 mg Atorvastatin Calcium (Lipitor -) 10 mg PO HS [facility] Last Admin: 02/17/18 21:25 Dose: 10 mg Clonidine (Catapres -) 0.1 mg PO TID [facility] Last Admin: 02/18/18 05:51 Dose: 0.1 mg Furosemide (Lasix Injection -) 40 mg IVPUSH DAILY [facility] Last Admin: 02/18/18 10:35 Dose: 40 mg Heparin Sodium (Porcine) (Heparin -) 5,000 unit SQ BID [facility] Last Admin: 02/18/18 10:35 Dose: 5,000 unit Hydrochlorothiazide (Hctz -) 25 mg PO DAILY [facility] Last Admin: 02/18/18 10:35 Dose: 25 mg Ranitidine HCl (Zantac -) 150 mg PO BID [facility] Last Admin: 02/18/18 10:35 Dose: 150 mg Trazodone HCl (Desyrel -) 50 mg PO [facility] Last Admin: 02/17/18 21:25 Dose: 50 mg - Objective Vital Signs: Vital Signs Temperature 99.2 F 02/18/18 05:00 Pulse Rate 78 02/18/18 05:00 Respiratory Rate 17 02/18/18 05:00 Blood Pressure 154/83 02/18/18 05:00 O2 Sat by Pulse Oximetry (%) 97 02/17/18 20:00 Eyes: Yes: WNL, Conjunctiva Clear, EOM Intact HENT: Yes: WNL, Atraumatic, Normocephalic Neck: Yes: WNL, Supple, Trachea Midline Cardiovascular: Yes: WNL, Regular Rate and Rhythm Respiratory: Yes: WNL, Regular, CTA Bilaterally Gastrointestinal: Yes: WNL, Normal Bowel Sounds Genitourinary: Yes: WNL Musculoskeletal: Yes: WNL Extremities: Yes: WNL Edema: No Integumentary: Yes: WNL Neurological: Yes: WNL, Alert, Oriented ...Motor Strength: WNL Psychiatric: Yes: WNL Labs: CBC, BMP 02/17/18 06:25 02/18/18 07:04 INR, PTT INR 1.02 (0.82-1.09) 02/16/18 17:00 Assessment/Plan Problems (1) Renal dysfunction Code(s): N28.9 - DISORDER OF KIDNEY AND URETER, UNSPECIFIED (2) Edema extremities Code(s): R60.0 - LOCALIZED EDEMA (3) Elevated troponin I measurement Assessment/Plan: tank 2ndary to renal failure, uncontrolled HTN, CHF. Multiple CAD risks; sedentary. Will require coronary artery evaluation (followed by Dr. Coley at [facility] ; this may be done as outatient. Code(s): R74.8 - ABNORMAL LEVELS OF OTHER SERUM ENZYMES (4) Poorly controlled blood pressure Assessment/Plan: Continue present medications (per signal apprentice)). Recent abuse of cocaine will be a factor in choosing medications. Code(s): I99.8 - OTHER DISORDER OF CIRCULATORY SYSTEM (5) Hypertensive CKD (chronic kidney disease) Code(s): I12.9 - HYPERTENSIVE CHRONIC KIDNEY DISEASE W STG 1-4/UNSP CHR KDNY Qualifiers: Chronic kidney disease stage: unspecified stage Qualified Code(s): I12.9 - Hypertensive chronic kidney disease with stage 1 through stage 4 chronic kidney disease, or unspecified chronic kidney disease (6) [place] cardiac risk >20% in next 10 years Code(s): Z91.89 - OTH PERSONAL RISK FACTORS, NOT ELSEWHERE CLASSIFIED (7) Has smoked cigarettes within prior year Assessment/Plan: "stopped" 3 weeks ago. Code(s): Z87.891 - PERSONAL HISTORY OF NICOTINE DEPENDENCE (8) Cocaine abuse Assessment/Plan: last abused about 3 weeks ago. Code(s): F14.10 - COCAINE ABUSE, UNCOMPLICATED (9) Sleep apnea Assessment/Plan: noncompliant to CPAP mask. Code(s): G47.30 - SLEEP APNEA, UNSPECIFIED (10) Obesity Code(s): E66.9 - OBESITY, UNSPECIFIED
--- NOTE | 2018-02-18 12:32 | PN ---
Progress Note, Physician History of Present Illness: Pt seen and examined at bedside. He is awake and alert. He denies shortness of breath. He feels that his lower ext edema is starting to improve. He denies chest pain. - Current Medication List Current Medications: Active Medications Acetaminophen (Tylenol -) 650 mg PO Q6H PRN PRN Reason: FEVER Amlodipine Besylate (Norvasc -) 10 mg PO DAILY [facility] Last Admin: 02/18/18 10:35 Dose: 10 mg Atorvastatin Calcium (Lipitor -) 10 mg PO HS [facility] Last Admin: 02/17/18 21:25 Dose: 10 mg Clonidine (Catapres -) 0.1 mg PO TID [facility] Last Admin: 02/18/18 05:51 Dose: 0.1 mg Furosemide (Lasix Injection -) 40 mg IVPUSH DAILY [facility] Last Admin: 02/18/18 10:35 Dose: 40 mg Heparin Sodium (Porcine) (Heparin -) 5,000 unit SQ BID [facility] Last Admin: 02/18/18 10:35 Dose: 5,000 unit Hydrochlorothiazide (Hctz -) 25 mg PO DAILY [facility] Last Admin: 02/18/18 10:35 Dose: 25 mg Ranitidine HCl (Zantac -) 150 mg PO BID [facility] Last Admin: 02/18/18 10:35 Dose: 150 mg Trazodone HCl (Desyrel -) 50 mg PO HS [facility] Last Admin: 02/17/18 21:25 Dose: 50 mg - Objective Vital Signs: Vital Signs Temperature 99.2 F 02/18/18 05:00 Pulse Rate 78 02/18/18 05:00 Respiratory Rate 17 02/18/18 05:00 Blood Pressure 154/83 02/18/18 05:00 O2 Sat by Pulse Oximetry (%) 97 02/17/18 20:00 Constitutional: Yes: Calm Eyes: Yes: Conjunctiva Clear HENT: Yes: Atraumatic Neck: Yes: Supple Cardiovascular: Yes: S1, S2 Respiratory: Yes: CTA Bilaterally Gastrointestinal: Yes: Soft, Abdomen, Obese Genitourinary: Yes: WNL Extremities: Yes: WNL Edema: Yes Edema: LLE: 1+, RLE: 1+ Neurological: Yes: Oriented Psychiatric: Yes: Oriented Labs: CBC, BMP 02/17/18 06:25 02/18/18 07:04 INR, PTT INR 1.02 (0.82-1.09) 02/16/18 17:00 - ....Imaging Ultrasound: Report Reviewed Problem List - Problems (1) HTN (hypertension) Code(s): I10 - ESSENTIAL (PRIMARY) HYPERTENSION (2) CKD (chronic kidney disease) Code(s): N18.9 - CHRONIC KIDNEY DISEASE, UNSPECIFIED (3) Edema extremities Code(s): R60.0 - LOCALIZED EDEMA (4) Elevated troponin I measurement Code(s): R74.8 - ABNORMAL LEVELS OF OTHER SERUM ENZYMES (5) Poorly controlled blood pressure Code(s): I99.8 - OTHER DISORDER OF CIRCULATORY SYSTEM Assessment/Plan Current Medications Generic Name Dose Route Start Last Admin Trade Name Freq PRN Reason Stop Dose Admin Acetaminophen 650 mg 02/16/18 21:52 Tylenol - PO Q6H PRN FEVER Amlodipine Besylate 10 mg 02/17/18 10:00 02/18/18 10:35 Norvasc - PO 10 mg DAILY [facility] Administration Atorvastatin Calcium 10 mg 02/17/18 22:00 02/17/18 21:25 Lipitor - PO 10 mg HS ANISH Administration Clonidine 0.1 mg 02/16/18 22:00 02/18/18 05:51 Catapres - PO 0.1 mg TID ANISH Administration Furosemide 40 mg 02/17/18 10:00 02/18/18 10:35 Lasix Injection - IVPUSH 40 mg DAILY [facility] Administration Heparin Sodium (Porcine) 5,000 unit 02/16/18 22:00 02/18/18 10:35 Heparin - SQ 5,000 unit BID [facility]ISH Administration Hydrochlorothiazide 25 mg 02/17/18 10:00 02/18/18 10:35 Hctz - PO 25 mg DAILY [facility] Administration Ranitidine HCl 150 mg 02/16/18 22:00 02/18/18 10:35 Zantac - PO 150 mg BID [facility] Administration Trazodone HCl 50 mg 02/16/18 22:00 02/17/18 21:25 Desyrel - PO 50 mg HS ANISH Administration Laboratory Tests 02/18/18 02/18/18 02/18/18 07:04 07:04 07:04 VENITA M-Brandon Pending TARIK Screen Pending c-ANCA Pending Proteinase 3 (PR3) Pending p-ANCA Pending Atypical p-ANCA Pending Myeloperoxidase Ab Pending Double Strand DNA Ab Pending Glomerular Base Memb Ab Pending Hepatitis A Ab Total Pending Hep Bs Antigen Pending Hep Bs Antibody Pending Hep B Core Total Ab Pending HCV Quantitation Pending Impression 1. HTN poorly controlled 2. CKD 3. SHAR 4. cocain use 5. etoh abuse 6. HLD 7. GERD 8. nsaid use Plan - renal function is starting to improve, repeat labs in am - reviewed renal ultrasound, pt has echogenic kidneys - renal workup is in progress - nsaids, cocaine, uncontrolled htn and chf are the likely reasons for his SHAR and CKD - cont to monitor bp - will hold off flaco or arb in the setting of SHAR - will follow Dr Champagne
[2018-02-18] MEDS ORDERED: ARTIFICIAL TEARS (POLYVINYL ALCOHOL 1.4%) OPTH DROPS OU PRN (15:13)
--- NOTE | 2018-02-18 17:25 | PN ---
Progress Note, Physician History of Present Illness: doing well - Current Medication List Current Medications: Active Medications Acetaminophen (Tylenol -) 650 mg PO Q6H PRN PRN Reason: FEVER Amlodipine Besylate (Norvasc -) 10 mg PO DAILY [facility] Last Admin: 02/18/18 10:35 Dose: 10 mg Artificial Tears (Artificial Tears) 1 drop OU Q4H PRN PRN Reason: DRY EYES Atorvastatin Calcium (Lipitor -) 10 mg PO HS [facility] Last Admin: 02/17/18 21:25 Dose: 10 mg Clonidine (Catapres -) 0.1 mg PO TID [facility] Last Admin: 02/18/18 05:51 Dose: 0.1 mg Fluticasone Propionate (Flonase -) 2 spray NS DAILY [facility] Furosemide (Lasix Injection -) 40 mg IVPUSH DAILY [facility] Last Admin: 02/18/18 10:35 Dose: 40 mg Heparin Sodium (Porcine) (Heparin -) 5,000 unit SQ BID [facility] Last Admin: 02/18/18 10:35 Dose: 5,000 unit Hydrochlorothiazide (Hctz -) 25 mg PO DAILY [facility] Last Admin: 02/18/18 10:35 Dose: 25 mg Ranitidine HCl (Zantac -) 150 mg PO BID [facility] Last Admin: 02/18/18 10:35 Dose: 150 mg Trazodone HCl (Desyrel -) 50 mg PO [facility] Last Admin: 02/17/18 21:25 Dose: 50 mg - Objective Vital Signs: Vital Signs Temperature 97.7 F 02/18/18 13:59 Pulse Rate 83 02/18/18 13:59 Respiratory Rate 18 02/18/18 13:59 Blood Pressure 133/82 02/18/18 13:59 O2 Sat by Pulse Oximetry (%) 97 02/17/18 20:00 Constitutional: Yes: No Distress HENT: Yes: Atraumatic Neck: Yes: Supple Cardiovascular: Yes: Regular Rate and Rhythm Respiratory: Yes: CTA Bilaterally Gastrointestinal: Yes: Normal Bowel Sounds Extremities: Yes: WNL Edema: Yes Edema: LLE: 1+, RLE: 1+ Peripheral Pulses WNL: Yes Neurological: Yes: Alert, Oriented Labs: CBC, BMP 02/17/18 06:25 02/18/18 07:04 INR, PTT INR 1.02 (0.82-1.09) 02/16/18 17:00 Problem List - Problems (1) Edema extremities Assessment/Plan: on lasix and hctz improving Code(s): R60.0 - LOCALIZED EDEMA (2) Elevated troponin I measurement Assessment/Plan: trending down Code(s): R74.8 - ABNORMAL LEVELS OF OTHER SERUM ENZYMES (3) Hypertensive CKD (chronic kidney disease) Assessment/Plan: probably due to uncontrolled htn cr improving Code(s): I12.9 - HYPERTENSIVE CHRONIC KIDNEY DISEASE W STG 1-4/UNSP CHR KDNY Qualifiers: Chronic kidney disease stage: unspecified stage Qualified Code(s): I12.9 - Hypertensive chronic kidney disease with stage 1 through stage 4 chronic kidney disease, or unspecified chronic kidney disease (4) Poorly controlled blood pressure Assessment/Plan: on meds improving Code(s): I99.8 - OTHER DISORDER OF CIRCULATORY SYSTEM
[2018-02-18] MEDS: ATORVASTATIN CA 10 MG TABLET (FP) PO SCH (21:42)
[2018-02-18] MEDS: traZODone HCL 50 MG TABLET (FP) PO SCH (21:42)
[2018-02-19] MEDS: cloNIDine HCL 0.1 MG TABLET PO SCH ×3 (06:17→21:38)
[2018-02-19 07:54] LABS: CHLORIDE 105 mmol/L (98-107); POTASSIUM 3.5 mmol/L (3.5-5.1); SODIUM 145 mmol/L (136-145)
[2018-02-19 08:03] LABS: ANION GAP 15 (8-16); BLOOD UREA NITROGEN 75 mg/dL (7-18); CALCIUM 8.2 mg/dL (8.5-10.1); CO2 25 mmol/L (21-32); CREATININE 5.7 mg/dL (0.7-1.3); GLUCOSE,RANDOM 82 mg/dL (74-106)
[2018-02-19] MEDS: FLUTICASONE PROP 0.05% 16 GM NASAL SPRAY NS SCH (10:28)
[2018-02-19] MEDS: HYDROCHLOROTHIAZIDE 25 MG TABLET (FP) PO SCH (10:29)
[2018-02-19] MEDS: HEPARIN NA (PORCINE) 5,000 UNITS/ML 1ML VIAL SQ SCH ×2 (10:29→21:38)
[2018-02-19] MEDS: amLODIPine BESYLATE 10 MG TABLET (FP) PO SCH (10:30)
[2018-02-19] MEDS: FUROSEMIDE 40 MG/4 ML INJECTABLE VIAL IVPUSH SCH (10:30)
[2018-02-19] MEDS: RANITIDINE HCL 150 MG TABLET (FP) PO SCH ×2 (10:30→21:39)
--- NOTE | 2018-02-19 15:14 | PN ---
Progress Note, Physician - Current Medication List Current Medications: Active Medications Acetaminophen (Tylenol -) 650 mg PO Q6H PRN PRN Reason: FEVER Amlodipine Besylate (Norvasc -) 10 mg PO DAILY [facility] Last Admin: 02/19/18 10:30 Dose: 10 mg Artificial Tears (Artificial Tears) 1 drop OU Q4H PRN PRN Reason: DRY EYES Atorvastatin Calcium (Lipitor -) [address] [facility] Last Admin: 02/18/18 21:42 Dose: 10 mg Clonidine (Catapres -) 0.1 mg PO TID [facility] Last Admin: 02/19/18 13:48 Dose: 0.1 mg Fluticasone Propionate (Flonase -) 2 spray NS DAILY [facility] Last Admin: 02/19/18 10:28 Dose: 2 spray Furosemide (Lasix Injection -) 40 mg IVPUSH DAILY [facility] Last Admin: 02/19/18 10:30 Dose: 40 mg Heparin Sodium (Porcine) (Heparin -) 5,000 unit SQ BID [facility] Last Admin: 02/19/18 10:29 Dose: 5,000 unit Hydrochlorothiazide (Hctz -) 25 mg PO DAILY [facility] Last Admin: 02/19/18 10:29 Dose: 25 mg Ranitidine HCl (Zantac -) 150 mg PO BID [facility] Last Admin: 02/19/18 10:30 Dose: 150 mg Trazodone HCl (Desyrel -) [address] [facility] Last Admin: 02/18/18 21:42 Dose: 50 mg - Objective Vital Signs: Vital Signs Temperature 98.2 F 02/19/18 12:00 Pulse Rate 84 02/19/18 12:00 Respiratory Rate 18 02/19/18 12:00 Blood Pressure 167/97 02/19/18 12:00 O2 Sat by Pulse Oximetry (%) 99 02/19/18 11:09 Constitutional: Yes: Calm HENT: Yes: Atraumatic Neck: Yes: Supple Cardiovascular: Yes: Regular Rate and Rhythm Respiratory: Yes: CTA Bilaterally Gastrointestinal: Yes: Normal Bowel Sounds Extremities: Yes: WNL Labs: CBC, BMP 02/17/18 06:25 02/19/18 05:35 INR, PTT INR 1.02 (0.82-1.09) 02/16/18 17:00 Problem List - Problems (1) Edema extremities Assessment/Plan: on lasix and hctz improving Code(s): R60.0 - LOCALIZED EDEMA (2) Elevated troponin I measurement Assessment/Plan: trending down Code(s): R74.8 - ABNORMAL LEVELS OF OTHER SERUM ENZYMES (3) Hypertensive CKD (chronic kidney disease) Assessment/Plan: probably due to uncontrolled htn cr improving Code(s): I12.9 - HYPERTENSIVE CHRONIC KIDNEY DISEASE W STG 1-4/UNSP CHR KDNY Qualifiers: Chronic kidney disease stage: unspecified stage Qualified Code(s): I12.9 - Hypertensive chronic kidney disease with stage 1 through stage 4 chronic kidney disease, or unspecified chronic kidney disease (4) Poorly controlled blood pressure Assessment/Plan: on meds improving Code(s): I99.8 - OTHER DISORDER OF CIRCULATORY SYSTEM
--- NOTE | 2018-02-19 16:21 | PN ---
Progress Note, Physician History of Present Illness: Pt seen and examined at bedside. He is awake and alert. He denies shortness of breath. - Current Medication List Current Medications: Active Medications Acetaminophen (Tylenol -) 650 mg PO Q6H PRN PRN Reason: FEVER Amlodipine Besylate (Norvasc -) 10 mg PO DAILY [facility] Last Admin: 02/19/18 10:30 Dose: 10 mg Artificial Tears (Artificial Tears) 1 drop OU Q4H PRN PRN Reason: DRY EYES Atorvastatin Calcium (Lipitor -) 10 mg PO HS [facility] Last Admin: 02/18/18 21:42 Dose: 10 mg Clonidine (Catapres -) 0.1 mg PO TID [facility] Last Admin: 02/19/18 13:48 Dose: 0.1 mg Fluticasone Propionate (Flonase -) 2 spray NS DAILY [facility] Last Admin: 02/19/18 10:28 Dose: 2 spray Furosemide (Lasix Injection -) 40 mg IVPUSH DAILY [facility] Last Admin: 02/19/18 10:30 Dose: 40 mg Heparin Sodium (Porcine) (Heparin -) 5,000 unit SQ BID [facility] Last Admin: 02/19/18 10:29 Dose: 5,000 unit Hydrochlorothiazide (Hctz -) 25 mg PO DAILY [facility] Last Admin: 02/19/18 10:29 Dose: 25 mg Ranitidine HCl (Zantac -) 150 mg PO BID [facility] Last Admin: 02/19/18 10:30 Dose: 150 mg Trazodone HCl (Desyrel -) 50 mg PO [facility] Last Admin: 02/18/18 21:42 Dose: 50 mg - Objective Vital Signs: Vital Signs Temperature 98.2 F 02/19/18 12:00 Pulse Rate 84 02/19/18 12:00 Respiratory Rate 18 02/19/18 12:00 Blood Pressure 167/97 02/19/18 12:00 O2 Sat by Pulse Oximetry (%) 99 02/19/18 11:09 Constitutional: Yes: Calm Eyes: Yes: Conjunctiva Clear HENT: Yes: Atraumatic Neck: Yes: Supple Cardiovascular: Yes: S1, S2 Respiratory: Yes: CTA Bilaterally Gastrointestinal: Yes: Soft, Abdomen, Obese Genitourinary: Yes: WNL Musculoskeletal: Yes: WNL Edema: Yes Edema: LLE: 1+, RLE: 1+ Integumentary: Yes: Venous Stasis Changes Neurological: Yes: Oriented Psychiatric: Yes: Oriented Labs: CBC, BMP 02/17/18 06:25 02/19/18 05:35 INR, PTT INR 1.02 (0.82-1.09) 02/16/18 17:00 Problem List - Problems (1) HTN (hypertension) Code(s): I10 - ESSENTIAL (PRIMARY) HYPERTENSION (2) CKD (chronic kidney disease) Code(s): N18.9 - CHRONIC KIDNEY DISEASE, UNSPECIFIED (3) Edema extremities Code(s): R60.0 - LOCALIZED EDEMA (4) Elevated troponin I measurement Code(s): R74.8 - ABNORMAL LEVELS OF OTHER SERUM ENZYMES (5) Poorly controlled blood pressure Code(s): I99.8 - OTHER DISORDER OF CIRCULATORY SYSTEM Assessment/Plan Current Medications Generic Name Dose Route Start Last Admin Trade Name Freq PRN Reason Stop Dose Admin Acetaminophen 650 mg 02/16/18 21:52 Tylenol - PO Q6H PRN FEVER Amlodipine Besylate 10 mg 02/17/18 10:00 02/19/18 10:30 Norvasc - PO 10 mg DAILY ANISH Administration Artificial Tears 1 drop 02/18/18 15:13 Artificial Tears OU Q4H PRN DRY EYES Atorvastatin Calcium 10 mg 02/17/18 22:00 02/18/18 21:42 Lipitor - PO 10 mg HS ANISH Administration Clonidine 0.1 mg 02/16/18 22:00 02/19/18 13:48 Catapres - PO 0.1 mg TID [facility] Administration Fluticasone Propionate 2 spray 02/19/18 10:00 02/19/18 10:28 Flonase - NS 2 spray DAILY [facility] Administration Furosemide 40 mg 02/17/18 10:00 02/19/18 10:30 Lasix Injection - IVPUSH 40 mg DAILY [facility] Administration Heparin Sodium (Porcine) 5,000 unit 02/16/18 22:00 02/19/18 10:29 Heparin - SQ 5,000 unit BID [facility] Administration Hydrochlorothiazide 25 mg 02/17/18 10:00 02/19/18 10:29 Hctz - PO 25 mg DAILY [facility] Administration Ranitidine HCl 150 mg 02/16/18 22:00 02/19/18 10:30 Zantac - PO 150 mg BID [facility] Administration Trazodone HCl 50 mg 02/16/18 22:00 02/18/18 21:42 Desyrel - PO 50 mg HS ANISH Administration Laboratory Tests 02/18/18 02/18/18 02/18/18 07:04 07:04 07:04 VENITA M-Brandon Pending TARIK Screen Pending c-ANCA Pending Proteinase 3 (PR3) Pending p-ANCA Pending Atypical p-ANCA Pending Myeloperoxidase Ab Pending Double Strand DNA Ab <1 Glomerular Base Memb Ab Pending Hepatitis A Ab Total Pending Hep Bs Antigen Pending Hep Bs Antibody Pending Hep B Core Total Ab Pending HCV Quantitation Pending Impression 1. HTN poorly controlled 2. CKD 3. SHAR 4. cocain use 5. etoh abuse 6. HLD 7. GERD 8. nsaid use Plan - renal function continues to improve - renal workup in progress - SHAR likely multifactorial - cont to monitor bp - will hold off flaco or arb in the setting of SHAR - will follow Dr Champagne
--- NOTE | 2018-02-19 17:15 | PN ---
Progress Note, Physician Chief Complaint: Pt alert; denies chest pain or dyspnea. History of Present Illness: The patient is a 53 year old black male with history of hypertension, hyperlipidemia, alcohol dependence, sent from [facility] for hypertension. Patient recently completed 1 week alcohol detox. He was noted to have systolic hypertension to 218 today. He was given Clonidine and Hctz prior to ED arrival. On evaluation, the patient denies headache, blurred vision, numbness or tingling. He denies chest pain or shortness of breath. He denies any other physical complaint. <Lizz Simmons - Last Filed: 02/16/18 19:31> - Current Medication List Current Medications: Active Medications Acetaminophen (Tylenol -) 650 mg PO Q6H PRN PRN Reason: FEVER Amlodipine Besylate (Norvasc -) 10 mg PO DAILY [facility] Last Admin: 02/19/18 10:30 Dose: 10 mg Artificial Tears (Artificial Tears) 1 drop OU Q4H PRN PRN Reason: DRY EYES Atorvastatin Calcium (Lipitor -) 10 mg PO [facility] Last Admin: 02/18/18 21:42 Dose: 10 mg Clonidine (Catapres -) 0.1 mg PO TID [facility] Last Admin: 02/19/18 13:48 Dose: 0.1 mg Fluticasone Propionate (Flonase -) 2 spray NS DAILY [facility] Last Admin: 02/19/18 10:28 Dose: 2 spray Furosemide (Lasix Injection -) 40 mg IVPUSH DAILY [facility] Last Admin: 02/19/18 10:30 Dose: 40 mg Heparin Sodium (Porcine) (Heparin -) 5,000 unit SQ BID [facility] Last Admin: 02/19/18 10:29 Dose: 5,000 unit Hydrochlorothiazide (Hctz -) 25 mg PO DAILY [facility] Last Admin: 02/19/18 10:29 Dose: 25 mg Ranitidine HCl (Zantac -) 150 mg PO BID [facility] Last Admin: 02/19/18 10:30 Dose: 150 mg Trazodone HCl (Desyrel -) 50 mg PO HS [facility] Last Admin: 02/18/18 21:42 Dose: 50 mg - Objective Vital Signs: Vital Signs Temperature 97.8 F 02/19/18 16:00 Pulse Rate 84 02/19/18 16:00 Respiratory Rate 20 02/19/18 16:00 Blood Pressure 113/77 02/19/18 16:00 O2 Sat by Pulse Oximetry (%) 99 02/19/18 11:09 Labs: CBC, BMP 02/17/18 06:25 02/19/18 05:35 INR, PTT INR 1.02 (0.82-1.09) 02/16/18 17:00 Problem List - Problems (1) Renal dysfunction Code(s): N28.9 - DISORDER OF KIDNEY AND URETER, UNSPECIFIED (2) Edema extremities Code(s): R60.0 - LOCALIZED EDEMA (3) Elevated troponin I measurement Code(s): R74.8 - ABNORMAL LEVELS OF OTHER SERUM ENZYMES (4) Poorly controlled blood pressure Code(s): I99.8 - OTHER DISORDER OF CIRCULATORY SYSTEM (5) Hypertensive CKD (chronic kidney disease) Code(s): I12.9 - HYPERTENSIVE CHRONIC KIDNEY DISEASE W STG 1-4/UNSP CHR KDNY Qualifiers: Chronic kidney disease stage: unspecified stage Qualified Code(s): I12.9 - Hypertensive chronic kidney disease with stage 1 through stage 4 chronic kidney disease, or unspecified chronic kidney disease (6) [place] cardiac risk >20% in next 10 years Code(s): Z91.89 - OTH PERSONAL RISK FACTORS, NOT ELSEWHERE CLASSIFIED (7) Has smoked cigarettes within prior year Assessment/Plan: "stopped" 3 weeks ago. Code(s): Z87.891 - PERSONAL HISTORY OF NICOTINE DEPENDENCE (8) Cocaine abuse Assessment/Plan: last abused about 3 weeks ago. Code(s): F14.10 - COCAINE ABUSE, UNCOMPLICATED (9) Sleep apnea Assessment/Plan: noncompliant to CPAP mask. Code(s): G47.30 - SLEEP APNEA, UNSPECIFIED (10) Obesity Code(s): E66.9 - OBESITY, UNSPECIFIED
[2018-02-19] MEDS: ATORVASTATIN CA 10 MG TABLET (FP) PO SCH (21:38)
[2018-02-19] MEDS: traZODone HCL 50 MG TABLET (FP) PO SCH (21:38)
[2018-02-20 00:07] LABS: HBSAG SCREEN Negative (Negative); HEP A AB, IGM Negative (Negative); HEP B CORE AB, TOT Negative (Negative)
[2018-02-20] MEDS: cloNIDine HCL 0.1 MG TABLET PO SCH ×3 (05:39→21:59)
[2018-02-20 07:15] LABS: CHLORIDE 104 mmol/L (98-107); POTASSIUM 3.4 mmol/L (3.5-5.1); SODIUM 143 mmol/L (136-145)
[2018-02-20 07:22] LABS: ALBUMIN 3.1 g/dl (3.4-5.0); ALK PHOS 84 U/L (45-117); ANION GAP 10 (8-16); BILIRUBIN,TOTAL 0.2 mg/dL (0.2-1.0); BLOOD UREA NITROGEN 76 mg/dL (7-18); CALCIUM 7.9 mg/dL (8.5-10.1); CO2 29 mmol/L (21-32); CREATININE 5.4 mg/dL (0.7-1.3); GLUCOSE,RANDOM 85 mg/dL (74-106); SGOT/AST 12 U/L (15-37); SGPT/ALT 17 U/L (12-78); TOT PROT 6.1 g/dl (6.4-8.2)
[2018-02-20] MEDS ORDERED: PT OWN MED DRAWER 7, Y5N ONE (08:46)
[2018-02-20] MEDS: HYDROCHLOROTHIAZIDE 25 MG TABLET (FP) PO SCH (09:18)
[2018-02-20] MEDS: amLODIPine BESYLATE 10 MG TABLET (FP) PO SCH (09:18)
[2018-02-20] MEDS: FLUTICASONE PROP 0.05% 16 GM NASAL SPRAY NS SCH (09:18)
[2018-02-20] MEDS: HEPARIN NA (PORCINE) 5,000 UNITS/ML 1ML VIAL SQ SCH ×2 (09:18→21:59)
[2018-02-20] MEDS: FUROSEMIDE 40 MG/4 ML INJECTABLE VIAL IVPUSH SCH (09:18)
[2018-02-20] MEDS: RANITIDINE HCL 150 MG TABLET (FP) PO SCH ×2 (09:18→21:59)
[2018-02-20 10:17] LABS: ANTIGLOMERULAR BASEMENT MEN.AB 3 units (0-20)
--- NOTE | 2018-02-20 12:01 | PN ---
Progress Note, Physician - Current Medication List Current Medications: Active Medications Acetaminophen (Tylenol -) 650 mg PO Q6H PRN PRN Reason: FEVER Amlodipine Besylate (Norvasc -) 10 mg PO DAILY [facility] Last Admin: 02/20/18 09:18 Dose: 10 mg Artificial Tears (Artificial Tears) 1 drop OU Q4H PRN PRN Reason: DRY EYES Atorvastatin Calcium (Lipitor -) 10 mg PO HS [facility] Last Admin: 02/19/18 21:38 Dose: 10 mg Clonidine (Catapres -) 0.1 mg PO TID [facility] Last Admin: 02/20/18 05:39 Dose: 0.1 mg Fluticasone Propionate (Flonase -) 2 spray NS DAILY [facility] Last Admin: 02/20/18 09:18 Dose: 2 spray Furosemide (Lasix Injection -) 40 mg IVPUSH DAILY [facility] Last Admin: 02/20/18 09:18 Dose: 40 mg Heparin Sodium (Porcine) (Heparin -) 5,000 unit SQ BID [facility] Last Admin: 02/20/18 09:18 Dose: 5,000 unit Hydrochlorothiazide (Hctz -) 25 mg PO DAILY [facility] Last Admin: 02/20/18 09:18 Dose: 25 mg Ranitidine HCl (Zantac -) 150 mg PO BID [facility] Last Admin: 02/20/18 09:18 Dose: 150 mg Trazodone HCl (Desyrel -) 50 mg PO [facility] Last Admin: 02/19/18 21:38 Dose: 50 mg - Objective Vital Signs: Vital Signs Temperature 98.0 F 02/20/18 09:00 Pulse Rate 89 02/20/18 09:00 Respiratory Rate 18 02/20/18 09:00 Blood Pressure 121/91 02/20/18 09:00 O2 Sat by Pulse Oximetry (%) 98 02/20/18 09:00 Eyes: Yes: WNL, Conjunctiva Clear, EOM Intact HENT: Yes: WNL, Atraumatic, Normocephalic Neck: Yes: WNL, Supple, Trachea Midline Cardiovascular: Yes: WNL, Regular Rate and Rhythm Respiratory: Yes: WNL, Regular, CTA Bilaterally Gastrointestinal: Yes: WNL, Normal Bowel Sounds Genitourinary: Yes: WNL Musculoskeletal: Yes: WNL Extremities: Yes: WNL Edema: Yes Integumentary: Yes: WNL Neurological: Yes: WNL, Alert, Oriented ...Motor Strength: WNL Psychiatric: Yes: WNL Labs: CBC, BMP 02/17/18 06:25 02/20/18 06:15 INR, PTT INR 1.02 (0.82-1.09) 02/16/18 17:00 Assessment/Plan Problems (1) Renal dysfunction Code(s): N28.9 - DISORDER OF KIDNEY AND URETER, UNSPECIFIED (2) Edema extremities Code(s): R60.0 - LOCALIZED EDEMA (3) Elevated troponin I measurement Assessment/Plan: pooly 2ndary to renal failure, uncontrolled HTN, CHF. Multiple CAD risks; sedentary. Will require coronary artery evaluation (followed by Dr. Coley at [facility] ; this may be done as outatient. Code(s): R74.8 - ABNORMAL LEVELS OF OTHER SERUM ENZYMES (4) Poorly controlled blood pressure Assessment/Plan: Continue present medications (per mold insert changer)). Recent abuse of cocaine will be a factor in choosing medications. Code(s): I99.8 - OTHER DISORDER OF CIRCULATORY SYSTEM (5) Hypertensive CKD (chronic kidney disease) Code(s): I12.9 - HYPERTENSIVE CHRONIC KIDNEY DISEASE W STG 1-4/UNSP CHR KDNY Qualifiers: Chronic kidney disease stage: unspecified stage Qualified Code(s): I12.9 - Hypertensive chronic kidney disease with stage 1 through stage 4 chronic kidney disease, or unspecified chronic kidney disease (6) Union cardiac risk >20% in next 10 years Code(s): Z91.89 - OTH PERSONAL RISK FACTORS, NOT ELSEWHERE CLASSIFIED (7) Has smoked cigarettes within prior year Assessment/Plan: "stopped" 3 weeks ago. Code(s): Z87.891 - PERSONAL HISTORY OF NICOTINE DEPENDENCE (8) Cocaine abuse Assessment/Plan: last abused about 3 weeks ago. Code(s): F14.10 - COCAINE ABUSE, UNCOMPLICATED (9) Sleep apnea Assessment/Plan: noncompliant to CPAP mask. Code(s): G47.30 - SLEEP APNEA, UNSPECIFIED (10) Obesity Code(s): E66.9 - OBESITY, UNSPECIFIED
[2018-02-20] MEDS ORDERED: POTASSIUM CHLORIDE TABS 20 MEQ TABLET.ER (FP) PO ONE (15:49)
--- NOTE | 2018-02-20 15:49 | PN ---
Progress Note, Physician History of Present Illness: Pt seen and examined at bedside. He is awake and alert. He denies shortness of breath. He denies dysuria. - Current Medication List Current Medications: Active Medications Acetaminophen (Tylenol -) 650 mg PO Q6H PRN PRN Reason: FEVER Amlodipine Besylate (Norvasc -) 10 mg PO DAILY [facility] Last Admin: 02/20/18 09:18 Dose: 10 mg Artificial Tears (Artificial Tears) 1 drop OU Q4H PRN PRN Reason: DRY EYES Atorvastatin Calcium (Lipitor -) 10 mg PO [facility] Last Admin: 02/19/18 21:38 Dose: 10 mg Clonidine (Catapres -) 0.1 mg PO TID [facility] Last Admin: 02/20/18 13:28 Dose: 0.1 mg Fluticasone Propionate (Flonase -) 2 spray NS DAILY [facility] Last Admin: 02/20/18 09:18 Dose: 2 spray Furosemide (Lasix Injection -) 40 mg IVPUSH DAILY [facility] Last Admin: 02/20/18 09:18 Dose: 40 mg Heparin Sodium (Porcine) (Heparin -) 5,000 unit SQ BID [facility] Last Admin: 02/20/18 09:18 Dose: 5,000 unit Hydrochlorothiazide (Hctz -) 25 mg PO DAILY [facility] Last Admin: 02/20/18 09:18 Dose: 25 mg Ranitidine HCl (Zantac -) 150 mg PO BID [facility] Last Admin: 02/20/18 09:18 Dose: 150 mg Trazodone HCl (Desyrel -) 50 mg PO [facility] Last Admin: 02/19/18 21:38 Dose: 50 mg - Objective Vital Signs: Vital Signs Temperature 97.7 F 02/20/18 14:00 Pulse Rate 83 02/20/18 14:00 Respiratory Rate 20 02/20/18 14:00 Blood Pressure 148/73 02/20/18 14:00 O2 Sat by Pulse Oximetry (%) 98 02/20/18 09:00 Constitutional: Yes: Calm Eyes: Yes: Conjunctiva Clear HENT: Yes: Atraumatic Cardiovascular: Yes: S1, S2 Respiratory: Yes: CTA Bilaterally Gastrointestinal: Yes: Soft, Abdomen, Obese Genitourinary: Yes: WNL Musculoskeletal: Yes: WNL Edema: Yes Edema: LLE: 1+, RLE: 1+ Integumentary: Yes: WNL Neurological: Yes: Oriented Psychiatric: Yes: Oriented Labs: CBC, BMP 02/17/18 06:25 02/20/18 06:15 INR, PTT INR 1.02 (0.82-1.09) 02/16/18 17:00 Problem List - Problems (1) HTN (hypertension) Code(s): I10 - ESSENTIAL (PRIMARY) HYPERTENSION (2) CKD (chronic kidney disease) Code(s): N18.9 - CHRONIC KIDNEY DISEASE, UNSPECIFIED (3) Edema extremities Code(s): R60.0 - LOCALIZED EDEMA (4) Elevated troponin I measurement Code(s): R74.8 - ABNORMAL LEVELS OF OTHER SERUM ENZYMES (5) Poorly controlled blood pressure Code(s): I99.8 - OTHER DISORDER OF CIRCULATORY SYSTEM Assessment/Plan Current Medications Generic Name Dose Route Start Last Admin Trade Name Freq PRN Reason Stop Dose Admin Acetaminophen 650 mg 02/16/18 21:52 Tylenol - PO Q6H PRN FEVER Amlodipine Besylate 10 mg 02/17/18 10:00 02/20/18 09:18 Norvasc - PO 10 mg DAILY [facility] Administration Artificial Tears 1 drop 02/18/18 15:13 Artificial Tears OU Q4H PRN DRY EYES Atorvastatin Calcium 10 mg 02/17/18 22:00 02/19/18 21:38 Lipitor - PO 10 mg HS [facility] Administration Clonidine 0.1 mg 02/16/18 22:00 02/20/18 13:28 Catapres - PO 0.1 mg TID [facility] Administration Fluticasone Propionate 2 spray 02/19/18 10:00 02/20/18 09:18 Flonase - NS 2 spray DAILY [facility] Administration Furosemide 40 mg 02/17/18 10:00 02/20/18 09:18 Lasix Injection - IVPUSH 40 mg DAILY [facility] Administration Heparin Sodium (Porcine) 5,000 unit 02/16/18 22:00 02/20/18 09:18 Heparin - SQ 5,000 unit BID [facility] Administration Hydrochlorothiazide 25 mg 02/17/18 10:00 02/20/18 09:18 Hctz - PO 25 mg DAILY [facility] Administration Ranitidine HCl 150 mg 02/16/18 22:00 02/20/18 09:18 Zantac - PO 150 mg BID [facility] Administration Trazodone HCl 50 mg 02/16/18 22:00 02/19/18 21:38 Desyrel - PO 50 mg HS [facility] Administration Laboratory Tests 02/18/18 07:04 TARIK Screen Negative c-ANCA Pending Proteinase 3 (PR3) Pending p-ANCA Pending Atypical p-ANCA Pending Myeloperoxidase Ab Pending Double Strand DNA Ab <1 Impression 1. HTN poorly controlled 2. CKD 3. SHAR 4. cocain use 5. etoh abuse 6. HLD 7. GERD 8. nsaid use Plan - renal workup pending, will follow serologies - renal function is improving - cont diuretics - replace potassium - check mag - SHAR likely multifactorial, pt now off of nsaids and cocaine - will hold off flaco or arb in the setting of SHAR - will follow Dr Champagne
--- NOTE | 2018-02-20 17:06 | PN ---
Progress Note, Physician History of Present Illness: doing well - Current Medication List Current Medications: Active Medications Acetaminophen (Tylenol -) 650 mg PO Q6H PRN PRN Reason: FEVER Amlodipine Besylate (Norvasc -) 10 mg PO DAILY [facility] Last Admin: 02/20/18 09:18 Dose: 10 mg Artificial Tears (Artificial Tears) 1 drop OU Q4H PRN PRN Reason: DRY EYES Atorvastatin Calcium (Lipitor -) 10 mg PO [facility] Last Admin: 02/19/18 21:38 Dose: 10 mg Clonidine (Catapres -) 0.1 mg PO TID [facility] Last Admin: 02/20/18 13:28 Dose: 0.1 mg Fluticasone Propionate (Flonase -) 2 spray NS DAILY [facility] Last Admin: 02/20/18 09:18 Dose: 2 spray Furosemide (Lasix Injection -) 40 mg IVPUSH DAILY [facility] Last Admin: 02/20/18 09:18 Dose: 40 mg Heparin Sodium (Porcine) (Heparin -) 5,000 unit SQ BID [facility] Last Admin: 02/20/18 09:18 Dose: 5,000 unit Hydrochlorothiazide (Hctz -) 25 mg PO DAILY [facility] Last Admin: 02/20/18 09:18 Dose: 25 mg Ranitidine HCl (Zantac -) 150 mg PO BID [facility] Last Admin: 02/20/18 09:18 Dose: 150 mg Trazodone HCl (Desyrel -) 50 mg PO [facility] Last Admin: 02/19/18 21:38 Dose: 50 mg - Objective Vital Signs: Vital Signs Temperature 97.7 F 02/20/18 14:00 Pulse Rate 83 02/20/18 14:00 Respiratory Rate 20 02/20/18 14:00 Blood Pressure 148/73 02/20/18 14:00 O2 Sat by Pulse Oximetry (%) 98 02/20/18 09:00 Constitutional: Yes: No Distress HENT: Yes: Atraumatic Neck: Yes: Supple Cardiovascular: Yes: Regular Rate and Rhythm Respiratory: Yes: CTA Bilaterally Gastrointestinal: Yes: Normal Bowel Sounds Extremities: Yes: WNL Edema: LLE: Trace, RLE: Trace Neurological: Yes: Alert, Oriented Labs: CBC, BMP 02/17/18 06:25 02/20/18 06:15 INR, PTT INR 1.02 (0.82-1.09) 02/16/18 17:00 Problem List - Problems (1) Edema extremities Assessment/Plan: will switch to po lasix and dc tomorow improving Code(s): R60.0 - LOCALIZED EDEMA (2) Elevated troponin I measurement Assessment/Plan: trending down Code(s): R74.8 - ABNORMAL LEVELS OF OTHER SERUM ENZYMES (3) Hypertensive CKD (chronic kidney disease) Assessment/Plan: cr improving Code(s): I12.9 - HYPERTENSIVE CHRONIC KIDNEY DISEASE W STG 1-4/UNSP CHR KDNY Qualifiers: Chronic kidney disease stage: unspecified stage Qualified Code(s): I12.9 - Hypertensive chronic kidney disease with stage 1 through stage 4 chronic kidney disease, or unspecified chronic kidney disease (4) Poorly controlled blood pressure Assessment/Plan: on meds improving Code(s): I99.8 - OTHER DISORDER OF CIRCULATORY SYSTEM Assessment/Plan dc in am d/w dr lyles
--- NOTE | 2018-02-20 18:24 | CONSULT ---
Consult Detox [facility] Reason for Current Admission/Consult: substance use Referred by:: Natalya gordon - History Source History Provided By: Patient, Medical Record, Caregiver Limitations to Obtaining History: No Limitations - Alcohol/Substance Use Hx Alcohol Use: Yes Hx Substance Use Treatment: Yes (completed inpaietn detox at [facility]) - Past Medical History Cardio/Vascular: Yes: HTN, Hyperlipdemia Gastrointestinal: Yes: GERD Renal/: Yes: Other (ckd) Psych: Yes: Other (alcoholism) - Significant Medical Findings: 53 yo m keisha completed detox at [facility] was admitted for uncontrolled HTN, now co pain 5/10 requesting referral for mmtp to control pain. medically stable no signs of withdrawal, bp controlled. Assessment Plan - Diagnosis (1) Hip pain, bilateral Status: Acute (2) Alcohol dependence with uncomplicated withdrawal Status: Acute (3) Cocaine abuse Status: Acute (4) HTN (hypertension) Status: Acute Qualifiers: Hypertension type: essential hypertension Qualified Code(s): I10 - Essential (primary) hypertension (5) Obesity Status: Acute (6) Sleep apnea Status: Acute - Plan Plan: chart, imaging and labs reviewed, patient examined and history taken. Care discussed with medical team. Patient is requesting to be referred to a methadone program for pain management , bilateral hip pain 5/10 reported. Patient does not have a history of opioid use disorder and does not use opioids at this time, or in the past and will not be eligible for admission to a methadone program, he is refusing suboxone for pain. In light of his history of alcohol use disorder, sever it would not be advisable to treat his pain with controlled substances. 1. alcohol use disorder - refer to [facility] for intensive outpatient therapy, patient is refusing inpatient alcohol rehab at this time. 2. bialteral hip pain - started on neurontin 100mg tid. 3. elevated bp - currently controlled on medications, may have been exacerbated by protracted alcohol withdrawal sx. 4. cont vitamins. 5. utox ordered [facility] [phone] - Medication Detox Regimen/Protocol: Not Applicable
[2018-02-20] MEDS ORDERED: ZOLPIDEM TARTRATE 5 MG TABLET PO PRN (18:27)
[2018-02-20] MEDS ORDERED: chlordiazePOXIDE HCL 25 MG CAPSULE PO PRN (18:28)
[2018-02-20 21:40] LABS: URINE AMPHETAMINES NEGATIVE ng/ml (CUTOFF=500); URINE BARBITURATES NEGATIVE ng/ml (CUTOFF=200); URINE BENZODIAZEPINES NEGATIVE ng/ml (CUTOFF=200)
[2018-02-20 21:41] LABS: METHADONE, UR NEGATIVE ng/ml (CUTOFF=300); OPIATES, URI NEGATIVE ng/ml (CUTOFF=300); PHENCYCLIDINE,URINE NEGATIVE ng/ml (CUTOFF=25)
[2018-02-20 21:43] LABS: COCAINE, UR POSITIVE ng/ml (CUTOFF=300)
[2018-02-20] MEDS: POTASSIUM CHLORIDE TABS 20 MEQ TABLET.ER (FP) PO SCH (21:59)
[2018-02-20] MEDS: GABAPENTIN 100 MG CAPSULE (FP) PO SCH (21:59)
[2018-02-20] MEDS: traZODone HCL 50 MG TABLET (FP) PO SCH (21:59)
[2018-02-20] MEDS: ATORVASTATIN CA 10 MG TABLET (FP) PO SCH (21:59)
[2018-02-20] MEDS ORDERED: THIAMINE HCL 100 MG TABLET (FP) PO SCH (22:00)
[2018-02-21 00:10] LABS: ATYPICAL pANCA <1:20 titer (Neg:<1:20); C-ANCA <1:20 titer (Neg:<1:20); P-ANCA <1:20 titer (Neg:<1:20); PROTEINASE-3 ANTIBODY <3.5 U/mL (0.0-3.5)
[2018-02-21] MEDS: cloNIDine HCL 0.1 MG TABLET PO SCH ×2 (05:18→13:11)
[2018-02-21] MEDS: GABAPENTIN 100 MG CAPSULE (FP) PO SCH ×2 (05:18→13:11)
[2018-02-21 07:17] LABS: BASO % 1.3 % (0-2.0); EOS % 5.2 % (0-4.5); HEMATOCRIT 30.4 % (35.4-49); HEMOGLOBIN 10.3 GM/dL (11.7-16.9); LYMPH % 19.3 % (8-40); MCH 28.6 pg (25.7-33.7); MCHC 33.9 g/dl (32.0-35.9); MEAN CELL VOLUME 84.2 fl (80-96); MEAN PLT VOLUME 9.6 fl (7.5-11.1); MONO % 15.7 % (3.8-10.2); NEUT % 58.5 % (42.8-82.8); PLATELET COUNT 274 K/MM3 (134-434); RBC 3.61 M/mm3 (4.00-5.60); WHITE BLOOD COUNT 6.7 K/mm3 (4.0-10.0)
[2018-02-21 08:06] LABS: CHLORIDE 103 mmol/L (98-107); POTASSIUM 3.6 mmol/L (3.5-5.1); SODIUM 141 mmol/L (136-145)
[2018-02-21 08:53] LABS: ALBUMIN 3.3 g/dl (3.4-5.0); ALK PHOS 91 U/L (45-117); ANION GAP 11 (8-16); BILIRUBIN,TOTAL 0.4 mg/dL (0.2-1.0); BLOOD UREA NITROGEN 83 mg/dL (7-18); CALCIUM 7.9 mg/dL (8.5-10.1); CO2 27 mmol/L (21-32); CREATININE 5.8 mg/dL (0.7-1.3); GLUCOSE,RANDOM 89 mg/dL (74-106); MAGNESIUM 2.3 mg/dL (1.8-2.4); SGOT/AST 12 U/L (15-37); SGPT/ALT 20 U/L (12-78); TOT PROT 6.5 g/dl (6.4-8.2)
[2018-02-21] MEDS ORDERED: PT OWN MED DRAWER 7, Y5N ONE (09:25)
[2018-02-21] MEDS: FLUTICASONE PROP 0.05% 16 GM NASAL SPRAY NS SCH (09:28)
[2018-02-21] MEDS: POTASSIUM CHLORIDE TABS 20 MEQ TABLET.ER (FP) PO SCH (09:28)
[2018-02-21] MEDS: HYDROCHLOROTHIAZIDE 25 MG TABLET (FP) PO SCH (09:28)
[2018-02-21] MEDS: amLODIPine BESYLATE 10 MG TABLET (FP) PO SCH (09:29)
[2018-02-21] MEDS: HEPARIN NA (PORCINE) 5,000 UNITS/ML 1ML VIAL SQ SCH (09:30)
[2018-02-21] MEDS: RANITIDINE HCL 150 MG TABLET (FP) PO SCH (09:30)
[2018-02-21] MEDS ORDERED: PRENATAL VITAMINS W/ FOLIC ACID TABLET (FP) PO SCH (10:00)
[2018-02-21] MEDS ORDERED: FUROSEMIDE 40 MG TABLET (FP) PO SCH (10:00)
--- NOTE | 2018-02-21 11:46 | PN ---
Progress Note (short form) - Note Progress Note: RENAL Pt is awake and alert has no specific complaints Last Vital Signs Temp Pulse Resp BP Pulse Ox 97.5 F L 80 18 137/75 99 02/21/18 08:48 02/21/18 08:48 02/21/18 08:48 02/21/18 08:48 02/20/18 21:00 lungs clear cvs s1s2 rr no rub abd soft ext no edema neuro a+ox3, no asterixis or clonus CBC, BMP 02/21/18 05:00 02/21/18 05:00 Current Medications Generic Name Dose Route Start Last Admin Trade Name Freq PRN Reason Stop Dose Admin Acetaminophen 650 mg 02/16/18 21:52 02/20/18 22:11 Tylenol - PO 650 mg Q6H PRN Administration FEVER Amlodipine Besylate 10 mg 02/17/18 10:00 02/21/18 09:29 Norvasc - PO 10 mg DAILY [facility] Administration Artificial Tears 1 drop 02/18/18 15:13 Artificial Tears OU Q4H PRN DRY EYES Atorvastatin Calcium 10 mg 02/17/18 22:00 02/20/18 21:59 Lipitor - PO 10 mg HS [facility] Administration Chlordiazepoxide HCl 25 mg 02/20/18 18:28 Librium - PO Q4H PRN WITHDRAWAL(CONT SUBST) Clonidine 0.1 mg 02/16/18 22:00 02/21/18 05:18 Catapres - PO 0.1 mg TID [facility] Administration Fluticasone Propionate 2 spray 02/19/18 10:00 02/21/18 09:28 Flonase - NS 2 spray DAILY [facility] Administration Furosemide 80 mg 02/21/18 10:00 02/21/18 09:29 Lasix - PO 80 mg DAILY [facility] Administration Gabapentin 100 mg 02/20/18 22:00 02/21/18 05:18 Neurontin - PO 100 mg TID [facility] Administration Heparin Sodium (Porcine) 5,000 unit 02/16/18 22:00 02/21/18 09:30 Heparin - SQ 5,000 unit BID [facility] Administration Hydrochlorothiazide 25 mg 02/17/18 10:00 02/21/18 09:28 Hctz - PO 25 mg DAILY [facility] Administration Potassium Chloride 20 meq 02/20/18 22:00 02/21/18 09:28 K-Dur - PO 20 meq BID [facility] Administration Multivit/Folic Acid/Iron 1 tab 02/21/18 10:00 02/21/18 09:30 Vitamins (Sjr) - PO 1 tab DAILY [facility] Administration Ranitidine HCl 150 mg 02/16/18 22:00 02/21/18 09:30 Zantac - PO 150 mg BID [facility] Administration Thiamine HCl 100 mg 02/20/18 22:00 02/20/18 21:59 Vitamin B1 - PO 100 mg HS [facility] Administration Trazodone HCl 50 mg 02/16/18 22:00 02/20/18 21:59 Desyrel - PO 50 mg HS [facility] Administration Zolpidem Tartrate 10 mg 02/20/18 18:27 02/20/18 22:01 Ambien - PO 10 mg HS PRN Administration INSOMNIA IMPRESSION gerald on ckd seems stable, howver his creatinine went up from yesterday to today HTN controlled PLAN would be concerned about discharging him since his creatinine is rising will need to decide on chronic hemodilaysis. Pt says he has CKD continue current meds MV
--- NOTE | 2018-02-21 13:47 | PN ---
Progress Note (short form) - Note Progress Note: i have d/w dr guerin on phone about pts creatinine pt is well known to dr lyles, as per his instructions , i had dc pt on po lasix. dr lyles is well aware of pts cr being fluctuating, he wants to see pt next week wed in his office , as he mentioned to me more work up is pending Problem List - Problems (1) Edema extremities Code(s): R60.0 - LOCALIZED EDEMA (2) Elevated troponin I measurement Code(s): R74.8 - ABNORMAL LEVELS OF OTHER SERUM ENZYMES (3) Hypertensive CKD (chronic kidney disease) Code(s): I12.9 - HYPERTENSIVE CHRONIC KIDNEY DISEASE W STG 1-4/UNSP CHR KDNY Qualifiers: Chronic kidney disease stage: unspecified stage Qualified Code(s): I12.9 - Hypertensive chronic kidney disease with stage 1 through stage 4 chronic kidney disease, or unspecified chronic kidney disease (4) Poorly controlled blood pressure Code(s): I99.8 - OTHER DISORDER OF CIRCULATORY SYSTEM
--- NOTE | 2018-02-21 14:37 | PN ---
Progress Note, Physician Chief Complaint: Events noted Coverage for Dr. Aquino Patient of Dr. Lei Coley at [facility] History of Present Illness: Patient was seen and examined. Awake and alert. Chart was reviewed Denies chest pain, SOB or palpitations - Current Medication List Current Medications: Active Medications Acetaminophen (Tylenol -) 650 mg PO Q6H PRN PRN Reason: FEVER Last Admin: 02/20/18 22:11 Dose: 650 mg Amlodipine Besylate (Norvasc -) 10 mg PO DAILY [facility] Last Admin: 02/21/18 09:29 Dose: 10 mg Artificial Tears (Artificial Tears) 1 drop OU Q4H PRN PRN Reason: DRY EYES Atorvastatin Calcium (Lipitor -) 10 mg PO HS [facility] Last Admin: 02/20/18 21:59 Dose: 10 mg Chlordiazepoxide HCl (Librium -) 25 mg PO Q4H PRN PRN Reason: WITHDRAWAL(CONT SUBST) Clonidine (Catapres -) 0.1 mg PO TID [facility] Last Admin: 02/21/18 13:11 Dose: 0.1 mg Fluticasone Propionate (Flonase -) 2 spray NS DAILY [facility] Last Admin: 02/21/18 09:28 Dose: 2 spray Furosemide (Lasix -) 80 mg PO DAILY [facility] Last Admin: 02/21/18 09:29 Dose: 80 mg Gabapentin (Neurontin -) 100 mg PO TID [facility] Last Admin: 02/21/18 13:11 Dose: 100 mg Heparin Sodium (Porcine) (Heparin -) 5,000 unit SQ BID [facility] Last Admin: 02/21/18 09:30 Dose: 5,000 unit Hydrochlorothiazide (Hctz -) 25 mg PO DAILY [facility] Last Admin: 02/21/18 09:28 Dose: 25 mg Potassium Chloride (K-Dur -) 20 meq PO BID [facility] Last Admin: 02/21/18 09:28 Dose: 20 meq Multivit/Folic Acid/Iron ( Vitamins (Sjr) -) 1 tab PO DAILY [facility] Last Admin: 02/21/18 09:30 Dose: 1 tab Ranitidine HCl (Zantac -) 150 mg PO BID [facility] Last Admin: 02/21/18 09:30 Dose: 150 mg Thiamine HCl (Vitamin B1 -) 100 mg PO HS [facility] Last Admin: 02/20/18 21:59 Dose: 100 mg Trazodone HCl (Desyrel -) 50 mg PO HS [facility] Last Admin: 02/20/18 21:59 Dose: 50 mg Zolpidem Tartrate (Ambien -) 10 mg PO HS PRN PRN Reason: INSOMNIA Last Admin: 02/20/18 22:01 Dose: 10 mg - Objective Vital Signs: Vital Signs Temperature 97.5 F L 02/21/18 08:48 Pulse Rate 80 02/21/18 08:48 Respiratory Rate 18 02/21/18 08:48 Blood Pressure 137/75 02/21/18 08:48 O2 Sat by Pulse Oximetry (%) 99 02/20/18 21:00 Eyes: Yes: PERRL HENT: Yes: Atraumatic Neck: Yes: Supple Cardiovascular: Yes: Regular Rate and Rhythm, S1, S2 Respiratory: Yes: CTA Bilaterally Gastrointestinal: Yes: Normal Bowel Sounds, Soft. No: Tenderness Edema: Yes Edema: LLE: 1+, RLE: 1+ Additional Findings/Remarks: - Review of Systems Constitutional: denies: Chills, Fever Cardiovascular: denies: chest pain, SOB, palpitation Respiratory: denies: Cough and sputum Production Gastrointestinal: denies: Nausea, Vomiting, Diarrhea, Constipation or Abdominal Pain Musculoskeletal: denies: Joint Pain Neurological: denies: Dizziness or Headaches Labs: CBC, BMP 02/21/18 05:00 02/21/18 05:00 Problem List - Problems (1) Alcohol dependence with uncomplicated withdrawal Code(s): F10.230 - ALCOHOL DEPENDENCE WITH WITHDRAWAL, UNCOMPLICATED (2) CKD (chronic kidney disease) Code(s): N18.9 - CHRONIC KIDNEY DISEASE, UNSPECIFIED (3) Cocaine abuse Code(s): F14.10 - COCAINE ABUSE, UNCOMPLICATED (4) Elevated troponin I measurement Code(s): R74.8 - ABNORMAL LEVELS OF OTHER SERUM ENZYMES (5) HTN (hypertension) Code(s): I10 - ESSENTIAL (PRIMARY) HYPERTENSION Qualifiers: Hypertension type: essential hypertension Qualified Code(s): I10 - Essential (primary) hypertension (6) Sleep apnea Code(s): G47.30 - SLEEP APNEA, UNSPECIFIED Assessment/Plan 1. Elevated troponin suspect demand ischemia with the presence of renal failure 2. Acute on chronic kidney disease 3. Hypertension 4. Substance abuse including Cocaine 5. Probable sleep apnea PLAN: 1. Continue Amlodipine and HCTZ 2. Continue statin 3. Currently on Catapress - as tolerated. Avoid beta vicky in view of Cocaine abuse 4. Consider ASA therapy 5. Further cardiac evaluation can be done as outpatient with Dr. Lei Coley as outlined by Dr. Aquino 6. Monitor renal function 7. CPAP if tolerated Further plans are to follow Jas Allison MD
[2018-02-21 15:05] VITALS: BP 151/91; PULSE 89; TEMP 97.2
== END 2018-02-21 16:01 | disposition home or self-care (01) | DRG 460 ==
LOC: JER 16:33 → JERBED 19:43 → J4W 02-17 02:55
PROVIDERS: ADMIT Internal Medicine; ATTEND Internal Medicine
DX: N17.9 Acute kidney failure, unspecified (principal); N18.9 Chronic kidney disease, unspecified; F10.230 Alcohol dependence with withdrawal, uncomplicated; G47.30 Sleep apnea, unspecified; E66.9 Obesity, unspecified; Z68.39 Body mass index [BMI] 39.0-39.9, adult; E78.5 Hyperlipidemia, unspecified; K21.9 Gastro-esophageal reflux disease without esophagitis; R60.0 Localized edema; I99.8 Other disorder of circulatory system; F14.10 Cocaine abuse, uncomplicated; I50.9 Heart failure, unspecified; I13.0 Hypertensive heart and chronic kidney disease with heart failure and stage 1 through stage 4 chronic kidney disease, or unspecified chronic kidney disease
CPT/HCPCS: 36415; 71045-TC-FY; 76775-TC; 76856-TC; 80048; 80053; 80061; 80307; 81003; 81015; 82436; 82550; 82570; 83516; 83520; 83721; 83735; 83880; 84133; 84155; 84165; 84300; 84484; 84540; 85025; 85610; 86038; 86225; 86256; 86704; 86706; 86708; 87340; 87522; 93005; 93010; 93306-TC; 99284-25; J0735; J1644